=== PATIENT | male | born 1985 | race Caucasian/White ===

== ENCOUNTER 2021-07-13 00:10 | Inpatient (IN) | payer OTHER ==
[~2021-07-13] VITALS: Ht 188 cm; Wt 99.8 kg
[~2021-07-13 00:10] MED LIST: CIPR500 PO; DIPATR PO; HYDACE5 PO; RXDIPATR PO; RXHYDACE PO; RXTRAM50 PO; TRAM50 PO; TRAZ50 PO
[2021-07-13 00:31] LABS: Hematocrit 53.1 % (37.0-53.0); Hemoglobin 18.4 g/dL (13.5-17.5); Mean Corpuscular HGB 30.9 pg (26.0-34.0); Mean Corpuscular HGB Conc 34.7 g/dL (31.5-36.5); Mean Corpuscular Volume 89 fL (80-100); Mean Platelet Volume 9.7 fL (9.1-12.4); Platelet Count 339 K/mm3 (150-400); RDW Standard Deviation 39.8 fL (35.1-46.3); Red Blood Cell Count 5.95 M/mm3 (4.30-5.90); White Blood Cell Count 10.57 K/mm3 (4.00-11.30)
[2021-07-13 00:43] LABS: Albumin, Blood 3.3 g/dL (3.4-5.0); Albumin/Globulin Ratio 0.8 (0.8-1.8); Bun/Creatinine Ratio 17.4 (12.0-20.0); Calcium, Blood 9.8 mg/dL (8.5-10.1); Creatinine, Blood 1.44 mg/dL (0.60-1.20); Globulin, Blood 4.3 g/dL (2.2-4.0); Potassium, Blood 3.8 mmol/L (3.5-5.5); Total Protein, Blood 7.6 g/dL (6.4-8.2)
[2021-07-13 00:51] LABS: BAND PERCENT MAN 40 % (0-8); BASOPHILS PERCENT MAN 0 % (0-2); EOSINOPHILS PERCENT MAN 0 % (0-6); LYMPHOCYTES ABSOLUTE MAN 1.05 K/mm3 (0.84-5.20); LYMPHOCYTES PERCENT MAN 10 % (21-46); MONOCYTES ABSOLUTE MAN 0.42 K/mm3 (0.16-1.47); MONOCYTES PERCENT MAN 4 % (4-13); MYELOCYTE ABSOLUTE MAN 0.21 K/mm3 (0.00-0.00); MYELOCYTE PERCENT MAN 2 % (0-0); NEUTROPHILS ABSOLUTE MAN 8.87 K/mm3 (1.96-9.15); SEG NEUTROPHILS PERCENT MAN 44 % (41-73); TOTAL CELLS COUNTED 100
[2021-07-13 02:36] LABS: Influenza A, PCR NEGATIVE (NEGATIVE); Influenza B, PCR NEGATIVE (NEGATIVE); Resp Syncytial Virus, PCR NEGATIVE (NEGATIVE); SARS-Cov-2 (COVID-19) PCR, MMC NEGATIVE (NEGATIVE)
[2021-07-13 05:02] LABS: Hematocrit 51.5 % (37.0-53.0); Hemoglobin 17.7 g/dL (13.5-17.5); Mean Corpuscular HGB 30.8 pg (26.0-34.0); Mean Corpuscular HGB Conc 34.4 g/dL (31.5-36.5); Mean Corpuscular Volume 90 fL (80-100); Mean Platelet Volume 9.5 fL (9.1-12.4); Platelet Count 296 K/mm3 (150-400); RDW Coefficient Variation 12.1 % (11.7-14.2); RDW Standard Deviation 40.1 fL (35.1-46.3); Red Blood Cell Count 5.75 M/mm3 (4.30-5.90); White Blood Cell Count 10.85 K/mm3 (4.00-11.30)
--- NOTE | 2021-07-13 05:05 | NUR ---
RECEIVED PATIENT TO FLOOR ABOUT 0420. ALERT AND ORIENTED X'S 4. COMPLAINS OF ABDOMINAL PAIN UPON PALPITATION AND WHEN HAS TO REPOSITION SELF. NO ACUTE DISTRESS NOTED. ABDOMEN SLIGHT DISTENDED, SOFT TO TOUCH, BOWEL SOUNDS HYPOACTIVE IN ALL FOUR QUADRANTS. CURRENTLY RESTING WITH EYES CLOSED IN BED. SAFETY MAINTAINED, CALL SOSA IN REACH.
[2021-07-13 05:17] LABS: International Normalized Ratio 1.24; Prothrombin Time Results 12.8 Sec (9.7-11.5)
[2021-07-13 05:20] LABS: BAND PERCENT MAN 36 % (0-8); BASOPHILS PERCENT MAN 0 % (0-2); EOSINOPHILS PERCENT MAN 0 % (0-6); LYMPHOCYTES ABSOLUTE MAN 0.97 K/mm3 (0.84-5.20); LYMPHOCYTES PERCENT MAN 9 % (21-46); METAMYELOCYTE ABSOLUTE MAN 0.21 K/mm3 (0.00-0.00); METAMYELOCYTE PERCENT MAN 2 % (0-0); MONOCYTES ABSOLUTE MAN 1.08 K/mm3 (0.16-1.47); MONOCYTES PERCENT MAN 10 % (4-13); NEUTROPHILS ABSOLUTE MAN 8.57 K/mm3 (1.96-9.15); SEG NEUTROPHILS PERCENT MAN 43 % (41-73); TOTAL CELLS COUNTED 100
[2021-07-13 05:21] LABS: Albumin/Globulin Ratio 0.8 (0.8-1.8); Bilirubin, Total 1.8 mg/dL (0.1-1.0); Bun/Creatinine Ratio 19.9 (12.0-20.0); Calcium, Blood 9.6 mg/dL (8.5-10.1); Creatinine, Blood 1.41 mg/dL (0.60-1.20); Globulin, Blood 3.9 g/dL (2.2-4.0); Potassium, Blood 3.9 mmol/L (3.5-5.5); Total Protein, Blood 6.9 g/dL (6.4-8.2)
--- NOTE | 2021-07-13 12:56 | NUR ---
PT STARTED TO HAVE AN ELEVATED HR WITH ACTVITY AT APPROXIMATELY 1145. PT WAS UP AMBULATING AND SITTING IN THE CHAIR. INITIALLY HIS HR WAS INTERMITTENTLY IN THE 130'S BUT STARTED TO SUSTAIN 130'S. PT REQUESTED TO GET BACK TO BED. HE WAS ASSISTED BACK TO BED. HE REPORTED L SHOULDER PAIN AND NECK PAIN AT 1200. HE IS ALSO DIAPHORETIC, VS OBTAINED AND WNL EXCEPT ELEVATED HR. DR. MACDONALD CONTACTED AND DR. HARRIS WAS CONSULTED FOR MEDICAL MANAGEMENT. EKG, 2 VIEW CHEST XRAY AND TROPONINS COLLECTED. PAIN MEDICATION GIVEN. AWAITING RESULTS OF IMAGING/LABS. WILL CONTINUE TO MONITOR.
[2021-07-13] MEDS ORDERED: SYMBICORT 160-4.6 GM INH (13:13)
[2021-07-13] MEDS ORDERED: AMIT25 PO (13:15)
--- NOTE | 2021-07-13 14:27 | NUR ---
SPOKE WITH DR. HARRIS REGARDING ORDER FOR IV POTASSIUM REPLACEMENT SINCE LAST POTASSIUM LEVEL WAS 3.9. PER DR. HARRIS CONTINUE WITH PLAN FOR IV POTASSIUM REPLACEMENT OF 40MEQ POTASSIUM CHLORIDE. ALSO NOTIFIED DR. HARRIS THAT PT'S HR REMAINS 120-130. DISCUSSED NEED TO RESTART HOME MEDICATIONS AMITRYPTALINE AND SYMBICORT. ORDER PLACED FOR NICOTINE PATCH PER DR. HARRIS. AT THIS TIME PT REPORTS PAIN TO L SHOULDER AND NECK HAS DIMINISHED. HE STILL COMPLAINS OF ABD PAIN. HE REPORTS FEELING ANXIOUS AND ATIVAN WAS GIVEN FOR ANXIETY. WILL CONTINUE TO MONITOR.
--- NOTE | 2021-07-13 16:43 | NUR ---
DR. HARRIS NOTIFIED THAT PT'S HR CONTINUES TO RUN IN THE HIGH 120'S TO 130S. PT PT IS ASYMPTOMATIC OF ELEVATED HR AT THIS TIME. HE HAS BEEN MEDICATED FOR PAIN AND ANXIETY WITH NO DECREASE IN HR. AT THIS TIME WILL CONTINUE TO MONITOR INSTRUCTED BY DR. HARRIS. WILL NOTIFY MEDICAL PROVIDER IF ANY CHANGES IN THE PATIENTS CONDITION.
--- NOTE | 2021-07-13 17:46 | NUR ---
SHIFT SUMMARY PT REMAINS IN THE HOSPITAL FOR CONSERVATIVE MANAGEMENT OF PERF'D DIVERTICULITIS. HIS PAIN HAS BEEN MANAGED WITH IV PAIN MEDICATION. PT HAS ALSO HAD SOME ANXIETY, MANAGED WITH ATIVAN X1. NAUSEA HAS BEEN MANAGED WITH ZOFRAN. PT IS TOLERATING SIPS AND CHIPS, PT INITIALLY DRANK WATER TO QUICKLY DESPITE EDUCATION AND HAD INCREASED PAIN THIS AM. PT HAS ONLY BEEN ALLOWED SMALL QUANTITIES OF WATER AND ICE TO AVOID LARGE INTAKE OF FLUID. PT HAS REPORTED UNDERSTANDING OF MINIMIZING INTAKE AND APPEARS TO BE SELF MONITORING INTAKE BETTER THIS EVENING. PT IS A 1 ASSIST WHEN OOB. HE REQUIRES FREQUENT ENCOURAGEMENT TO MOVE AND REPOSITION HIMSELF. PT EDUCATED TO AMBULATE TO IMPROVE GASTRIC MOBILITY AND RELIEVE GAS PAIN. PT HAS HAD AN ELEVATED HR THIS AFTERNOON, DR. HARRIS AND DR. MACDONALD AWARE OF ELEVATED HR. SINCE PT IS ASYMPTOMATIC HE IS BEING OBSERVED AT THIS TIME. HE HAS ALSO REMAINED IN BED R/T ELEVATED HEART RATE THIS AFTERNOON. PT WAS EDUCATED TO USE AN INCENTIVE SPIROMETER AND HE DEMONSTRATED USE APPROPRIATELY. WILL MONITOR UNTIL REPORT TO CHIO ORTIZ.
[2021-07-14 03:52] LABS: Hematocrit 48.7 % (37.0-53.0); Hemoglobin 16.5 g/dL (13.5-17.5); Mean Corpuscular HGB 30.7 pg (26.0-34.0); Mean Corpuscular HGB Conc 33.9 g/dL (31.5-36.5); Mean Corpuscular Volume 91 fL (80-100); Mean Platelet Volume 10.2 fL (9.1-12.4); Platelet Count 234 K/mm3 (150-400); RDW Coefficient Variation 12.3 % (11.7-14.2); RDW Standard Deviation 41.1 fL (35.1-46.3); Red Blood Cell Count 5.38 M/mm3 (4.30-5.90); White Blood Cell Count 8.88 K/mm3 (4.00-11.30)
[2021-07-14 04:09] LABS: Anion Gap 7 mmol/L (6-16); Blood Urea Nitrogen 39 mg/dL (8-24); Bun/Creatinine Ratio 35.8 (12.0-20.0); CO2, Blood 25 mmol/L (21-32); Calcium, Blood 9.1 mg/dL (8.5-10.1); Chloride, Blood 98 mmol/L (98-108); Creatinine, Blood 1.09 mg/dL (0.60-1.20); Glomerular Filtration Rate >60 (60-); Glucose, Blood 158 mg/dL (70-99); Magnesium, Blood 2.2 mg/dL (1.6-2.4); Potassium, Blood 4.2 mmol/L (3.5-5.5); Sodium, Blood 130 mmol/L (136-145)
[2021-07-14 04:14] LABS: BAND PERCENT MAN 39 % (0-8); BASOPHILS PERCENT MAN 0 % (0-2); EOSINOPHILS PERCENT MAN 0 % (0-6); LYMPHOCYTES ABSOLUTE MAN 0.88 K/mm3 (0.84-5.20); LYMPHOCYTES PERCENT MAN 10 % (21-46); MONOCYTES ABSOLUTE MAN 0.44 K/mm3 (0.16-1.47); MONOCYTES PERCENT MAN 5 % (4-13); MYELOCYTE ABSOLUTE MAN 0.08 K/mm3 (0.00-0.00); MYELOCYTE PERCENT MAN 1 % (0-0); NEUTROPHILS ABSOLUTE MAN 7.45 K/mm3 (1.96-9.15); SEG NEUTROPHILS PERCENT MAN 45 % (41-73); TOTAL CELLS COUNTED 100
--- NOTE | 2021-07-14 06:22 | NUR ---
Medicated with dilaudid iv almost every q3hrs for pain management. Heart rate was sustaining in the 140's, received Trandate 10mg x's 1, decreased to low 100's otherwise heart rate sustained in the low 120's, asymptmatic. Denied chest pain, applied 02@2L due to saturation decreased to 89% but patient denied SOB, respirations remained even and unlabored. Medicated with Zofran x's 1 due to nausea/vomitting a small amount, effective relief. Currently resting in bed, no acute distress noted, safety maintained, call quijano in reach.
--- NOTE | 2021-07-14 15:19 | NUR ---
PT. UP IN HALLWAY FOR A WALK, USING FWW AND SBA. TOLERATE WELL, HR UP TO 140, AT THIS TIME HR IS 120 AFTER SHOWER AND PT. IS RESTING IN BED. DENIES NAUSEA.
--- NOTE | 2021-07-14 16:18 | NUR ---
PT. RESTING WITH NO S/S PAIN OR ANY DISCOMFORT. RESP UNLABORED, NO FACIAL GRIMACE OR MOANING. POSITIONED WITH PILLOWS, CALL LIGHT IN REACH.
--- NOTE | 2021-07-14 18:14 | NUR ---
PT. AWOKE AT THIS TIME STATING HE WAS NAUSEATED AND THEN STARTED CRYING. AFTER ZOFRAN GIVEN PT. STATES HIS STOMACH HURT AND REQUEST PAIN MEDICATION. IV DILAUDID GIVEN FOR 8/10 PAIN. NOTED NO CHANGES IN ABDOMEN. AFTER MEDICATION GIVEN PATIENT DID VERBALIZE RELIEF.
--- NOTE | 2021-07-15 05:42 | NUR ---
MEDICATED WITH DILAUDID THROUGH NIGHT, EFFECTIVE RELIEF. AMBULATED IN [place]RIFF[place] ,PATIENT STATED IT MADE HIM FEEL A LITTLE BETTER, HEART RATE INCREASED TO 140, REMAINED ASYMPTOMATIC, ASSISTED PATIENT BACK TO BED, HEART RATE TRENDED DOWN TO ABOUT 115. ABDOMEN DISTENDED, BOWEL SOUNDS HYPOATIVE. SAFETY MAINTAINED, CALL SOSA IN REACH.
--- NOTE | 2021-07-15 16:37 | NUR ---
Upon receiving a spiritual care refferal, I visit pt. Pt is sitting up in bed and immediately tells me about his medical issues, the recent of his step-father and the emotional struggles he is having. We also talk about his spiritual journey and the things that inspire and motivate him. I normalize his experience and provide therapeutic listening, anxiety containment, spiritual guidance and prayer. Patient responds well and shows signs of an elevated mood. I will continue to remain aavailable to patient and family.
--- NOTE | 2021-07-15 18:03 | NUR ---
SHIFT SUMMARY A&O X4, INTELLECTUAL FUNCTIONING DISABILIY, CALLS AND RESPONDS APPROP TO STAFF. ANXIOUS ABOUT CARE PLAN AND DIAGNOSIS, NEEDS FREQ REASSURANCE. VSS ON RA, SINUS TACHY T/O DAY. TELE IN PLACE. NG TUBE PLACED W/ LIS TODAY PER DR. MACDONALD. PT REPORTS RELIEF IN ABD FROM NG, ABD SOFTER. PT REMAINS NPO W/ ICE CHIPS. DENIES N/V AND FLATUS. PAIN MANAGED WITH 1MG DILAUDID PER EMAR. TOMMY URINE T/O SHIFT. WILL REPORT TO ONCOMING RN.
[2021-07-16 04:27] LABS: BASOPHILS ABSOLUTE AUTO 0.05 K/mm3 (0.00-0.23); BASOPHILS PERCENT AUTO 0 % (0-2); EOSINOPHILS ABSOLUTE AUTO 0.01 K/mm3 (0.00-0.68); EOSINOPHILS PERCENT AUTO 0 % (0-6); Hematocrit 42.6 % (37.0-53.0); Hemoglobin 14.4 g/dL (13.5-17.5); IMMATURE GRAN ABSOLUTE AUTO 0.15 K/mm3 (0.00-0.10); IMMATURE GRAN PERCENT AUTO 1 % (0-1); LYMPHOCYTES ABSOLUTE AUTO 0.93 K/mm3 (0.84-5.20); LYMPHOCYTES PERCENT AUTO 7 % (21-46); MONOCYTES ABSOLUTE AUTO 1.03 K/mm3 (0.16-1.47); MONOCYTES PERCENT AUTO 8 % (4-13); Mean Corpuscular HGB 30.1 pg (26.0-34.0); Mean Corpuscular HGB Conc 33.8 g/dL (31.5-36.5); Mean Corpuscular Volume 89 fL (80-100); Mean Platelet Volume 9.7 fL (9.1-12.4); NEUTROPHILS ABSOLUTE AUTO 10.56 K/mm3 (1.96-9.15); NEUTROPHILS PERCENT AUTO 83 % (41-73); NRBC ABSOLUTE 0.02 K/mm3 (0.00-0.02); NRBC Auto 0.2 /100 WBC (0.0-0.2); Platelet Count 235 K/mm3 (150-400); RDW Standard Deviation 42.8 fL (35.1-46.3); Red Blood Cell Count 4.78 M/mm3 (4.30-5.90); White Blood Cell Count 12.73 K/mm3 (4.00-11.30)
--- NOTE | 2021-07-16 04:30 | NUR ---
SHIFT SUMMARY: PATIENT ALERT & ORIENTED BUT NEEDED SOME REINFORCEMENT ON HEALTH TEACHINGS HE FORGWTS SOMETIMES & TAKES A LITTLE WHILE TO UNDERSTAND. HR WNL, NO S/S OF RESP./CV DISTRESS NOTED. NGT IN PLACE DRAINING MODERATE AMOUNT OF BILE COLORED GASTRIC CONTENT. COMPLAINTS OF PAIN MEDICATED, SEE EMAR. WILL CONTINUE TO MONITOR.
[2021-07-16 04:45] LABS: Albumin, Blood 2.3 g/dL (3.4-5.0); Anion Gap 6 mmol/L (6-16); Blood Urea Nitrogen 15 mg/dL (8-24); Bun/Creatinine Ratio 25.7 (12.0-20.0); CO2, Blood 31 mmol/L (21-32); Calcium, Blood 8.7 mg/dL (8.5-10.1); Chloride, Blood 95 mmol/L (98-108); Creatinine, Blood 0.58 mg/dL (0.60-1.20); Glomerular Filtration Rate >60 (60-); Glucose, Blood 110 mg/dL (70-99); Phosphorus, Blood 2.8 mg/dL (2.5-4.9); Potassium, Blood 3.5 mmol/L (3.5-5.5); Sodium, Blood 132 mmol/L (136-145)
--- NOTE | 2021-07-16 16:12 | NUR ---
SHIFT SUMMARY A/0 X4, HX OF INTELLECTUAL DISABILITY, PT ASKS FREQUENT REPETITIVE QUESTIONS ABOUT CARE, FREQUENT REASSURANCE AND PT VERBALIZES UNDERSTANDING. NGT IN PLACE W/ LIS. GREEN/CLEAR LIQUID DRNG. PT REMAINS NPO EXCEPT ICE CHIPS & X2 CUPS OF SPRITE PER DR. MACDONALD. PT CONT TO REPORT 5 TO 6/10 PAIN, MEDICATED PER EMAR. ENCOURAGED MOVEMENT AND AMBULATION T/O DAY, PT HESITANT D/T NGT. WILL REPORT TO ONCOMING RN.
--- NOTE | 2021-07-17 05:08 | NUR ---
SHIFT SUMMARY: PT. COMPLAINTS OF ABDOMINAL PAIN MEDICATED, SEE, EMAR. NGT OUTPUT OF 1000 ML GREENISH GASTRIC CONTENT. NO S/S OF RESP./CV DISTRESS NOTED, THROUGHOUT THE SHIFT, PT. SLEPT WELL. ABLE TO MAKE NEEDS KNOWN & USES CALL LIGHT.
[2021-07-17 06:02] LABS: BASOPHILS ABSOLUTE AUTO 0.06 K/mm3 (0.00-0.23); BASOPHILS PERCENT AUTO 1 % (0-2); EOSINOPHILS ABSOLUTE AUTO 0.03 K/mm3 (0.00-0.68); EOSINOPHILS PERCENT AUTO 0 % (0-6); Hematocrit 43.6 % (37.0-53.0); Hemoglobin 14.9 g/dL (13.5-17.5); IMMATURE GRAN PERCENT AUTO 5 % (0-1); LYMPHOCYTES ABSOLUTE AUTO 1.68 K/mm3 (0.84-5.20); LYMPHOCYTES PERCENT AUTO 13 % (21-46); MONOCYTES ABSOLUTE AUTO 1.65 K/mm3 (0.16-1.47); MONOCYTES PERCENT AUTO 13 % (4-13); Mean Corpuscular HGB 30.3 pg (26.0-34.0); Mean Corpuscular HGB Conc 34.2 g/dL (31.5-36.5); Mean Corpuscular Volume 89 fL (80-100); Mean Platelet Volume 9.8 fL (9.1-12.4); NEUTROPHILS ABSOLUTE AUTO 8.52 K/mm3 (1.96-9.15); NEUTROPHILS PERCENT AUTO 68 % (41-73); Platelet Count 291 K/mm3 (150-400); RDW Coefficient Variation 13.3 % (11.7-14.2); RDW Standard Deviation 43.6 fL (35.1-46.3); Red Blood Cell Count 4.92 M/mm3 (4.30-5.90); White Blood Cell Count 12.54 K/mm3 (4.00-11.30)
[2021-07-17 06:33] LABS: Alanine Aminotransfer (ALT/SGP 30 U/L (12-78); Albumin, Blood 2.3 g/dL (3.4-5.0); Albumin/Globulin Ratio 0.6 (0.8-1.8); Alk Phos 122 U/L (50-136); Anion Gap 7 mmol/L (6-16); Aspartate Aminotrans (AST/SGOT 33 U/L (12-37); Bilirubin, Total 2.2 mg/dL (0.1-1.0); Blood Urea Nitrogen 14 mg/dL (8-24); Bun/Creatinine Ratio 25.3 (12.0-20.0); CO2, Blood 30 mmol/L (21-32); Chloride, Blood 96 mmol/L (98-108); Creatinine, Blood 0.55 mg/dL (0.60-1.20); Globulin, Blood 3.9 g/dL (2.2-4.0); Glomerular Filtration Rate >60 (60-); Glucose, Blood 106 mg/dL (70-99); Potassium, Blood 3.3 mmol/L (3.5-5.5); Sodium, Blood 133 mmol/L (136-145); Total Protein, Blood 6.2 g/dL (6.4-8.2)
--- NOTE | 2021-07-17 15:00 | NUR ---
Patient is resting but easily awakens to the sound of his name. He tells me about his positive progress and about how anxious he is to return home. He is looking forward to returning to the life of fishing and hiking that he enjoys. Patient has no concerns at this time. I provide prayer and continued grief support. Patient responds well and voices appreciation for the visit. I will continue to remain available to patient.
--- NOTE | 2021-07-17 17:56 | NUR ---
PATIENT CURRENTLY LYING IN BED WITH NO SIGNS OR SYMPTOMS ACUTE DISTRESS NOTE. MEDICATED FOR NAUSEA PER ORDERS. MEDICATED FOR PAIN PER ORDERS. SEE EMAR. IVF CONTINUE WITH IV ANTIBIOTICS. NGT WAS REMOVED THIS AM BY DR MACDONALD AT ABOUT 0930. PATIENT TOLERATED THE REMOVAL FAIR. PATIENT IS ABLE TO MAKE NEEDS AND WANTS KNOWN. IS TOLERATEING SIPS OF WATER THOROUGHT THE DAY. HE KNOWNS TO TAKE ADVANCING SLOWLY. HE DID NOT LIKE THE JELLO. CALL LIGHT IN EASY REACH, WILL MONITOR.
--- NOTE | 2021-07-18 04:43 | NUR ---
SHIFT SUMMARY: PT. ANXIOUS OF WHEN HE CAN GO HOME, REINFORCED HEALTH TEACHINGS ON CURRENT HEALTH NEEDS, PT. WOULD VERBALIZE UNDERSTANDING BUT WOULD REPEAT ASKING SAME QUESTIONS SEVERAL TIMES. PT. AMBULATED AT THE HALLWAY EARLY ON THE SHIFT, AMBULATES TO THE BATHROOM ON 1 PERSON ASSIST, REMINDED TO CALL FOR ANY ASSISTANCE & DON'T FALL, PT. VERBALIZED UNDERSTANDING, CLWR. DULCOLAX SUPPOSITORY GIVEN, PT. HAD 2 BMs SINCE THEN. VOIDING IN THE BATHROOM. COMPLAINTS OF NAUSEA & PAIN MEDICATED, SEE EMAR. NO S/S OF RESP./CV DISTRESS NOTED. WILL CONTINUE TO MONITOR.
[2021-07-18 10:03] LABS: BASOPHILS ABSOLUTE AUTO 0.07 K/mm3 (0.00-0.23); BASOPHILS PERCENT AUTO 1 % (0-2); EOSINOPHILS ABSOLUTE AUTO 0.01 K/mm3 (0.00-0.68); EOSINOPHILS PERCENT AUTO 0 % (0-6); Hematocrit 47.1 % (37.0-53.0); Hemoglobin 15.8 g/dL (13.5-17.5); IMMATURE GRAN ABSOLUTE AUTO 0.47 K/mm3 (0.00-0.10); IMMATURE GRAN PERCENT AUTO 3 % (0-1); LYMPHOCYTES ABSOLUTE AUTO 2.07 K/mm3 (0.84-5.20); LYMPHOCYTES PERCENT AUTO 14 % (21-46); MONOCYTES ABSOLUTE AUTO 1.26 K/mm3 (0.16-1.47); MONOCYTES PERCENT AUTO 8 % (4-13); Mean Corpuscular HGB 29.9 pg (26.0-34.0); Mean Corpuscular HGB Conc 33.5 g/dL (31.5-36.5); Mean Corpuscular Volume 89 fL (80-100); Mean Platelet Volume 9.6 fL (9.1-12.4); NEUTROPHILS ABSOLUTE AUTO 11.17 K/mm3 (1.96-9.15); NEUTROPHILS PERCENT AUTO 74 % (41-73); Platelet Count 335 K/mm3 (150-400); RDW Coefficient Variation 13.5 % (11.7-14.2); RDW Standard Deviation 44.1 fL (35.1-46.3); Red Blood Cell Count 5.28 M/mm3 (4.30-5.90); White Blood Cell Count 15.05 K/mm3 (4.00-11.30)
[2021-07-18 10:44] LABS: Anion Gap 8 mmol/L (6-16); Blood Urea Nitrogen 18 mg/dL (8-24); Bun/Creatinine Ratio 33.9 (12.0-20.0); CO2, Blood 29 mmol/L (21-32); Calcium, Blood 9.1 mg/dL (8.5-10.1); Chloride, Blood 98 mmol/L (98-108); Creatinine, Blood 0.53 mg/dL (0.60-1.20); Glomerular Filtration Rate >60 (60-); Glucose, Blood 114 mg/dL (70-99); Potassium, Blood 3.6 mmol/L (3.5-5.5); Sodium, Blood 135 mmol/L (136-145)
--- NOTE | 2021-07-18 16:37 | NUR ---
PATIENT UP IN GRIFFIN AMBULATING TODAY MULTIPLE TIMES WITH SBA, TOLERATE WELL. DID HAVE GREEN EMESIS THIS A.M. BUT AT THIS TIME TOLERATING CLEAR LIQUIDS. NO IV PAIN MEDICATION REQUIRED TODAY. HAS TAKEN 2 NORCO EARLIER FOR 5-6 OUT OF 10 ABDOMINAL DISCOMFORT.
--- NOTE | 2021-07-18 18:14 | NUR ---
DR. MACDONALD HERE TO SEE PATIENT. NOTIFEID DR. MACDONALD OF PATIENT BIALTERAL REDNESS NOTED ON FLANKS TODAY, SLIGHT SWELLING NOTED. DIET ADVANCED TO REGULAR FOR A.M. BREAKFAST.
--- NOTE | 2021-07-19 02:06 | NUR ---
0035 ACCOUNT EXECUTIVE [employer] TACOS NOTIFIED ME OF PT'S HR OF 150 FOR 10 - 15 MINS., NOTED PT. UP IN BED DRINKING WATER & COMPLAINTS OF ABDOMINAL PAIN OF 5-6/10, ANXIOUS OF THE WHOLE HOSPITALIZATION SITUATION & VERBALIZED OF WANTING TO GO HOME. GAVE PAIN MEDICINE AT 0041, & EXPLAINED TO PT. THAT HE NEEDS TO RELAX FOR NOW & WILL TALK TO MD TOMORROW FOR PLAN OF D/C. PT. STILL ANXIOUS, ATIVAN GIVEN AT 0049. PT. REQUESTED TO WALK AT THE HALLWAY. ASSISTED BY TRANSIT PROOF MACHINE OPERATOR, PT. WALKED ABOUT 60 METERS TOTAL THEN WENT TO BATHROOM TRYING TO PASS GAS WHICH PER PT. HE HAD A SMALL BM UNWITNESSED HE ALREADY FLUSHED. V/S CHECKED WITH HR RESULT OF 151, PER ACCOUNT EXECUTIVE [employer] HR ON 145 - 150. [address] VALLECILLO OF ALL THIS SITUATION, TELEPHONE ORDER RECEIVED TO GIVE NS 500 IV BOLUS NOW, MIRALAX 1 PACKET NOW & WAIT UNTIL PAIN MEDICATION KICKS IN IN ABOUT 30 MINUTES, LET ME KNOW IF PAIN DOES NOT IMPROVE,TORB. 0159 CAME TO SEE PT. IN ROOM, NS BOLUS WAS DONE, SAW FLUID RUNNING NS WITH 20 MEQ POTASSIUM AT 75 ML/HR, VERBAL ORDER RECEIVED FROM DR. VALLECILLO TO INCREASE CURRENT FLUID NS WITH 20 MEQ POTASSIUM TO 150 ML/HR, VORB. ASKED MD IF NO OTHER MEDICATION THAT HE CAN GIVE AT THIS TIME WITH CURRENT HR OF ON THE 150 - 160? MD REPLIED " NO, HE SHOULD BE FINE". WILL CONTINUE TO MONITOR & WILL NOTIFY MD OF ANY CHANGES.
[2021-07-19 02:28] LABS: Hematocrit 50.4 % (37.0-53.0); Hemoglobin 17.2 g/dL (13.5-17.5); Mean Corpuscular HGB 30.8 pg (26.0-34.0); Mean Corpuscular HGB Conc 34.1 g/dL (31.5-36.5); Mean Corpuscular Volume 90 fL (80-100); Mean Platelet Volume 9.8 fL (9.1-12.4); Platelet Count 377 K/mm3 (150-400); RDW Coefficient Variation 14.1 % (11.7-14.2); RDW Standard Deviation 46.5 fL (35.1-46.3); Red Blood Cell Count 5.58 M/mm3 (4.30-5.90); White Blood Cell Count 14.97 K/mm3 (4.00-11.30)
--- NOTE | 2021-07-19 02:34 | NUR ---
0225 NOTIFED BY REGISTERED APPRAISER OF HR OF 160, PT. WALKED TO BATHROOM & TRIED TO HAVE BM BUT ONLY PASSED GAS. 0236 PT. BACK IN BED, HR OF 149 SR PER REGISTERED APPRAISER, WILL CONTINUE TO MONITOR.
[2021-07-19 02:47] LABS: Anion Gap 6 mmol/L (6-16); Blood Urea Nitrogen 17 mg/dL (8-24); Bun/Creatinine Ratio 30.6 (12.0-20.0); CO2, Blood 25 mmol/L (21-32); Calcium, Blood 8.2 mg/dL (8.5-10.1); Chloride, Blood 104 mmol/L (98-108); Creatinine, Blood 0.56 mg/dL (0.60-1.20); Glomerular Filtration Rate >60 (60-); Glucose, Blood 127 mg/dL (70-99); Potassium, Blood 3.8 mmol/L (3.5-5.5); Sodium, Blood 135 mmol/L (136-145)
[2021-07-19 02:54] LABS: BAND PERCENT MAN 5 % (0-8); BASOPHILS PERCENT MAN 0 % (0-2); EOSINOPHILS PERCENT MAN 0 % (0-6); LYMPHOCYTES ABSOLUTE MAN 1.49 K/mm3 (0.84-5.20); LYMPHOCYTES PERCENT MAN 10 % (21-46); MONOCYTES ABSOLUTE MAN 0.89 K/mm3 (0.16-1.47); MONOCYTES PERCENT MAN 6 % (4-13); MYELOCYTE ABSOLUTE MAN 0.14 K/mm3 (0.00-0.00); MYELOCYTE PERCENT MAN 1 % (0-0); NEUTROPHILS ABSOLUTE MAN 12.42 K/mm3 (1.96-9.15); SEG NEUTROPHILS PERCENT MAN 78 % (41-73); TOTAL CELLS COUNTED 100
--- NOTE | 2021-07-19 05:58 | NUR ---
0500 NOTIFIED OF PT'S NO CHANGE OF HR WHICH IS ON THE 150S SINCE MD LAST SAW HIM IN THE ROOM, ALSO THAT HR GOES UP TO HIGH 160S UPON EXERTION SUCH GETTING UP & WALKING TO THE BATHROOM, TELEPHONE ORDER RECEIVED TO CONTINUE IV FLUID AT A RATE OF 150 BUT CHANGE IT TO PLAIN NS AFTER CURRENT FLUID ( NS WITH 20 MEQ POTASSIUM) IS FINISHED, DO EKG NOW TO MAKE SURE IT IS SINUS TACH & NOT RAPID AFIB, TORB. NOTIFIED DR. VALLECILLO OF EKG RESULT OF SINUS TACHYCARDIA AT 149 RATE, RIGHT AXIS DEVIATION, MD SAID " THAT'S OKAY", NO FURTHER ORDER RECEIVED, TORB.
--- NOTE | 2021-07-19 08:17 | NUR ---
DR MACDONALD IN TO SEE PT DISCUSSED HR. PT STABLE, DR MACDONALD WILL DC PATIENT TODAY. NOTIFIED DR HARRIS.
--- NOTE | 2021-07-19 09:41 | NUR ---
TELE DC'D AND SENT BACK.
[2021-07-19] MEDS ORDERED: HYDR1TAB94 PO (10:05)
[2021-07-19] MEDS ORDERED: AMOX-CLAV 875-1 EAC1 PO (10:06)
[2021-07-19] MEDS ORDERED: PROM25 PO (10:07)
--- NOTE | 2021-07-19 10:40 | NUR ---
Per Dr. Lord, patient appropriate for discharge. Nurse case fitter, Jaki Preciado, requested I schedule discharge transport with [place]. Transportation scheduled for 11:15AM with [facility] [phone] to transport him to his pharmacy and then home. I visited the patient in his [facility] room and discussed the follow-up appointment I scheduled with his PCP, Dr. Keshav Garcia, on July at 12:00 PM. I also gave patient a pamplet regarding transportation provided through [facility]. Patient's nurse consulted regarding discharge plan. All agreeable, deny barriers to discharge.
--- NOTE | 2021-07-19 10:51 | NUR ---
DISCHARGED REVIEWED DC INSTRUCTIONS W/PT; VERBALIZED UNDERSTANDING. DC'D IV, CATHETER INTACT. PT WANTS TO WAIT OUTSIDE FOR RIDE "TO GET SOME AIR". ADVISED PT RIDE ISN'T COMING UNTIL APPROXIMATELY 11:15, PT VERBALIZED UNDERSTANDING AND INSISTED ON WAITING OUT FRONT. LEFT UNIT IN WC W/POSSESSIONS AND DC PAPERWORK IN HAND TO AWAIT RIDE OUT FRONT.
== END 2021-07-19 10:55 | disposition home or self-care (01) | DRG 872 ==
LOC: ER 00:10 → SURS 03:55
PROVIDERS: Family Medicine; Internal Medicine; Student in an Organized Health Care Education/Training Program; ADMIT Surgery
DX: A41.9 Sepsis, unspecified organism (principal); K57.20 Diverticulitis of large intestine with perforation and abscess without bleeding; N17.9 Acute kidney failure, unspecified; E87.1 Hypo-osmolality and hyponatremia; E87.2 Acidosis; K56.7 Ileus, unspecified; Z20.822 Contact with and (suspected) exposure to COVID-19; R65.20 Severe sepsis without septic shock; E86.1 Hypovolemia; E78.5 Hyperlipidemia, unspecified; J45.909 Unspecified asthma, uncomplicated; G47.00 Insomnia, unspecified; E87.6 Hypokalemia; F41.1 Generalized anxiety disorder; F79 Unspecified intellectual disabilities; F12.20 Cannabis dependence, uncomplicated; Z28.21 Immunization not carried out because of patient refusal; F31.9 Bipolar disorder, unspecified; F17.210 Nicotine dependence, cigarettes, uncomplicated; F20.9 Schizophrenia, unspecified; Z79.899 Other long term (current) drug therapy; Z91.048 Other nonmedicinal substance allergy status
CPT/HCPCS: 0241U; 36415; 71045; 71046; 74177; 80048; 80053; 80069; 82248; 83605; 83690; 83735; 84484; 85025; 85610; 87040; 93005; 93010; 94640; 94664; 94760; 94762; 96365; 96375; 99285-25; A9270; J1170; J1200; J1650; J2060; J2405; J2543; J3480; J7030; J7040; J7042; J7120; Q9967

== ENCOUNTER 2021-07-20 17:50 | Inpatient (IN) | payer OTHER ==
[~2021-07-20] VITALS: Ht 190.5 cm; Wt 104.1 kg
[~2021-07-20 17:50] MED LIST changes: +AMIT25 PO; +AMOX-CLAV 875-1 EAC1 PO; +HYDR1TAB94 PO; +PROM25 PO; +SYMBICORT 160-4.6 GM INH
[2021-07-20 18:22] LABS: EOSINOPHILS PERCENT AUTO 0 % (0-6); Hematocrit 42.4 % (37.0-53.0); Hemoglobin 15.4 g/dL (13.5-17.5); IMMATURE GRAN ABSOLUTE AUTO 1.32 K/mm3 (0.00-0.10); IMMATURE GRAN PERCENT AUTO 3 % (0-1); LYMPHOCYTES ABSOLUTE AUTO 2.42 K/mm3 (0.84-5.20); LYMPHOCYTES PERCENT AUTO 6 % (21-46); MONOCYTES ABSOLUTE AUTO 1.46 K/mm3 (0.16-1.47); MONOCYTES PERCENT AUTO 3 % (4-13); Mean Corpuscular HGB 30.8 pg (26.0-34.0); Mean Corpuscular HGB Conc 36.3 g/dL (31.5-36.5); Mean Platelet Volume 10.3 fL (9.1-12.4); NEUTROPHILS ABSOLUTE AUTO 37.92 K/mm3 (1.96-9.15); NEUTROPHILS PERCENT AUTO 88 % (41-73); Platelet Count 425 K/mm3 (150-400); RDW Coefficient Variation 13.9 % (11.7-14.2); RDW Standard Deviation 42.7 fL (35.1-46.3); White Blood Cell Count 43.15 K/mm3 (4.00-11.30)
[2021-07-20 18:31] LABS: BASOPHILS ABSOLUTE AUTO 0.03 K/mm3 (0.00-0.23); BASOPHILS PERCENT AUTO 0 % (0-2); Mean Corpuscular Volume 85 fL (80-100)
[2021-07-20 18:38] LABS: Alanine Aminotransfer (ALT/SGP 125 U/L (12-78); Albumin, Blood 2.2 g/dL (3.4-5.0); Albumin/Globulin Ratio 0.6 (0.8-1.8); Alk Phos 131 U/L (50-136); Anion Gap 8 mmol/L (6-16); Aspartate Aminotrans (AST/SGOT 123 U/L (12-37); Bilirubin, Total 2.2 mg/dL (0.1-1.0); Blood Urea Nitrogen 45 mg/dL (8-24); Bun/Creatinine Ratio 48.8 (12.0-20.0); CO2, Blood 27 mmol/L (21-32); Calcium, Blood 8.7 mg/dL (8.5-10.1); Chloride, Blood 92 mmol/L (98-108); Creatinine, Blood 0.92 mg/dL (0.60-1.20); Globulin, Blood 3.8 g/dL (2.2-4.0); Glomerular Filtration Rate >60 (60-); Glucose, Blood 113 mg/dL (70-99); Potassium, Blood 4.2 mmol/L (3.5-5.5); Sodium, Blood 127 mmol/L (136-145)
[2021-07-20 21:33] LABS: Influenza A, PCR NEGATIVE (NEGATIVE); Influenza B, PCR NEGATIVE (NEGATIVE); Resp Syncytial Virus, PCR NEGATIVE (NEGATIVE); SARS-Cov-2 (COVID-19) PCR, MMC NEGATIVE (NEGATIVE)
[2021-07-21 04:06] LABS: BASOPHILS ABSOLUTE AUTO 0.15 K/mm3 (0.00-0.23); BASOPHILS PERCENT AUTO 0 % (0-2); EOSINOPHILS ABSOLUTE AUTO 0.03 K/mm3 (0.00-0.68); EOSINOPHILS PERCENT AUTO 0 % (0-6); Hematocrit 40.5 % (37.0-53.0); Hemoglobin 14.3 g/dL (13.5-17.5); IMMATURE GRAN ABSOLUTE AUTO 1.17 K/mm3 (0.00-0.10); IMMATURE GRAN PERCENT AUTO 3 % (0-1); LYMPHOCYTES ABSOLUTE AUTO 1.38 K/mm3 (0.84-5.20); LYMPHOCYTES PERCENT AUTO 4 % (21-46); MONOCYTES ABSOLUTE AUTO 1.16 K/mm3 (0.16-1.47); MONOCYTES PERCENT AUTO 3 % (4-13); Mean Corpuscular HGB 30.4 pg (26.0-34.0); Mean Corpuscular HGB Conc 35.3 g/dL (31.5-36.5); Mean Corpuscular Volume 86 fL (80-100); Mean Platelet Volume 10.1 fL (9.1-12.4); NEUTROPHILS ABSOLUTE AUTO 31.62 K/mm3 (1.96-9.15); NEUTROPHILS PERCENT AUTO 89 % (41-73); Platelet Count 424 K/mm3 (150-400); RDW Coefficient Variation 14.3 % (11.7-14.2); RDW Standard Deviation 45.4 fL (35.1-46.3); Red Blood Cell Count 4.71 M/mm3 (4.30-5.90); White Blood Cell Count 35.51 K/mm3 (4.00-11.30)
[2021-07-21 04:28] LABS: Alanine Aminotransfer (ALT/SGP 93 U/L (12-78); Albumin, Blood 1.7 g/dL (3.4-5.0); Albumin/Globulin Ratio 0.5 (0.8-1.8); Alk Phos 111 U/L (50-136); Anion Gap 9 mmol/L (6-16); Aspartate Aminotrans (AST/SGOT 82 U/L (12-37); Blood Urea Nitrogen 49 mg/dL (8-24); Bun/Creatinine Ratio 45.4 (12.0-20.0); CO2, Blood 28 mmol/L (21-32); CPK Creatine Kinase 43 U/L (39-308); Calcium, Blood 7.6 mg/dL (8.5-10.1); Chloride, Blood 94 mmol/L (98-108); Creatinine, Blood 1.08 mg/dL (0.60-1.20); Globulin, Blood 3.2 g/dL (2.2-4.0); Glomerular Filtration Rate >60 (60-); Glucose, Blood 121 mg/dL (70-99); Magnesium, Blood 2.1 mg/dL (1.6-2.4); Phosphorus, Blood 5.1 mg/dL (2.5-4.9); Potassium, Blood 5.1 mmol/L (3.5-5.5); Sodium, Blood 131 mmol/L (136-145); Total Protein, Blood 4.9 g/dL (6.4-8.2)
[2021-07-21 04:32] LABS: Creatine Kinase MB <1.0 ng/mL (0.0-3.6); Creatine Kinase MB Index Unable to Calculate (0.0-4.0)
[2021-07-21 05:06] LABS: Base Excess Venous 6.5 mmol/L; Bicarbonate Venous 27.9 mmol/L (24.0-30.0); PCO2 Venous 48.1 mmHg (38-42); PO2 Venous 28.6 mmHg (38-42); pH Blood Venous 7.42 (7.34-7.37)
--- NOTE | 2021-07-21 05:15 | NUR ---
Patient arrived ot the unit at 0120 directly from OR. OR nurse and anesthesia at bedside, very brief handoff given to this RN. On arrival, pt tachycardic, hypertensive, extrememly diaphoretic, tachypnic, skin appeared mottled, febrile. Not on any sedation or pain management at this time. Pts pupils 4mm and very sluggish. Nystagmus present. Pt began waking up; would not track/ regard or follow commands but would open eyes spontaneously. No response to noxious stim but moving all extremities. Dr Morris and Dr Huntley contacted regarding pt status on arrival. propofol gtt started. Pt extremely agitated/ anxious, not responsive to propofol gtt; titrated accordingly. Slowly he began to follow commands, remains very agitated but nods yes to feeling pain. Unsafely thrashing in bed, reaching for ETT bilateral soft wrist restraints for patient and device safety. Dr. Huntley at the bedside. PRN's ordered, pt responsive to IV ativan. with pain management pt remained tacycardic but BP and RR lowered, became more compliant with the ventilator. Fluid bolus and IV abx initiated. midline abdominal incision dressing/clemencia intact, scant sangenous drainage. RMQ maurizio drain to self suction. LMQ colosomy, stoma red, small amount of liquid stool draining. NGT to lws; brown output. Croft; mayank urine. Left powerglide placed at the bedside. After tempid bath and icepacks, fever lowered by pt remains extremely diaphoretic. Intermittent agitation persists despite propofol gtt; prns given frequently.
--- NOTE | 2021-07-21 08:00 | NUR ---
PT REMAINS INTUBATED, SEDATED, AND RESTRAINED. CURRENTLY, PROPOFOL @ 60 MCG/KG/MIN. PT IS NOT FOLLOWING COMMANDS OR MOVING EXTREMTITIES SPONTANEOUSLY. PT HAS HX- SCHIZOPHRENIA AND ANXIETY. SEDATION LEVEL HAS BEEN DIFFICULT TO PREDICT. WILL MEDICATE FOR PAIN PER CPOT-SEE EMAR. ECG SHOWS ST WITH RATE 120'S. BP STABLE. LUNGS DIMINISHED IN THE BASES. ETT TO VENT: PS 8, PEEP 5, FIO2 30%-SATS>90% ETT SUCTION PRODUCTIVE OF SMALL AMOUNT OF THICK, WHITE SECTRETIONS. NGT TO LIS WITH MODERATE AMOUNT OF BROWN, LIQUID DRAINAGE. MIDLINE INCISION WITH MICHAEL DRESSING. SMALL AMOUNT OF OLD, BLOODY DRAINAGE NOTED, BUT DRESSING OVERALL C/D/I. BT'S ABSENT. ABDOMEN APPEARS DISTENDED AND FIRM. CELIA TO RMQ WITH SANGINOUS DRAINAGE. LEFT QUADRANT COLOSTOMY STOMA PINK AND THERE IS A SMALL AMOUNT OF BROWN, LIQUID STOOL TO DRAINAGE BAG. PT SKIN IS PALE, COOL, AND VERY DIAPHORETIC. CROCKER EXCHANGED FOR CROCKER WITH TEMP PROBE AND PT IS QUITE FEBRILE. COOLING BLANKET PLACED. CROCKER NOTED TO HAVE SMALL AMOUNT OF DARK, CLOUDY, TOMMY URINE-U/A SENT. DR. ZAVALA IN TO SEE PT-UPDATED TO CURRENT VS AND STATUS. PLAN FOR PICC LINE PLACEMENT LATER TODAY.
[2021-07-21 08:39] LABS: Source, Urine Foley catheter
[2021-07-21 08:50] LABS: Appearance, Urine Turbid (Clear); Bilirubin, Urine Neg (Neg); Blood, Urine 2+ (Neg); Color, Urine Yellow (P-Yellow); Glucose Qualitative, Urine Neg (Neg); Ketones, Urine Neg (Neg); Leukocyte Esterase, Urine 1+ (Neg); Nitrite, Urine Neg (Neg); Protein, Urine 2+ (Neg); Specific Gravity, Urine 1.025 (1.003-1.022); Urobilinogen, Urine NORM (Normal)
[2021-07-21 09:48] LABS: Amorphous Heavy (0-Heavy); Bacteria Mod /hpf; Squamous Epithelial Cells Few /hpf (Few)
[2021-07-21 09:49] LABS: Granular Casts 0-2 /lpf (0); Transitional Epithelial Cells Few /hpf (0-Rare)
--- NOTE | 2021-07-21 12:00 | NUR ---
PT RESTING QUIETLY ON VENT WITH PROPOFOL @ 60 MCG/KG/MIN. HR NOW 110'S. SBP TRENDING 120'S. TEMP 100.8-COOLING MEASURES STILL IN PLACE. PT MAINTAINS SATS>90% ON PS 8/5-FIO2 30%. MINIMAL ETT SECRETIONS. ABDOMEN REMAINS DISTENDED AND FIRM. MIDLINE DRESSING INTACT, BUT SMALL AMOUNT OF OLD BLOOD-UNCHANGED FROM PREVIOUS ASSESSMENT. BT'S REMAIN ABSENT, BUT COLOSTOMY STOMA PINK AND SMALL AMOUNT OF BROWN LIQUID STOOL TO OSTOMY DRAINAGE BAG. DR. DOUGLAS IN TO SEE PT.UPDATED TO CURRENT VS AND STATUS. PICC LINE HAS BEEN PLACED. DIETARY CONSULTED FOR TPN.
--- NOTE | 2021-07-21 14:00 | NUR ---
PT MED WITH MORPHINE AND ATIVAN, THEN TURNED HIGH ON THE LEFT SIDE TO EVALUATE SKIN. PT COCCYX SLIGHTLY RED. MEPILEX PLACED PREVENTATIVE MEASURE. MARTINEZ PAD CHANGED-PT TACHYPNEIC AND TACHYCARDIC, BUT OVERALL TOLERATED WELL. POSITIONED TO COMFORT ON RIGHT SIDE. PROPOFOL DRIP DECREASED TO 45 MCG/KG/MIN.
--- NOTE | 2021-07-21 16:00 | NUR ---
PT REMAINS INTUBATED, SEDATED, AND RESTRAINED. PT GRIMACES WITH ORAL CARE AND BECOMES TACHYPNEIC-MED WITH MORPHINE PER CPOT-SEE EMAR. PT REMAINS FEBRILE AND COOLING BLANKET IN PLACE HR 100-110'S. SBP TRENDING 120'S. LUNGS REMAIN DIMINISHED IN THE BASES. SATS >90% ON FI02 30%-NO VENT CHANGES. STILL FEW ETT SECRETIONS. MIDLINE MICHAEL DRESSING IS UNCHANGED. ABDOMEN REMAINS DISTENDED AND FIRM. BT'S REMAIN ABSENT, BUT COLOSTOMY STOMA RED AND DRAINING A SMALL AMOUNT OF BROWN, LIQUID STOOL. NGT TO LIS-DRAINING MODERATE AMOUNT OF BILE. CROCKER OUTPUT IMPROVED.
--- NOTE | 2021-07-21 18:29 | NUR ---
PT RESTING QUIETLY ON VENT. NO ACUTE CHANGES. INTAKE 2415 VS. 1275 OUT THIS SHIFT.
[2021-07-22 04:18] LABS: BASOPHILS ABSOLUTE AUTO 0.06 K/mm3 (0.00-0.23); BASOPHILS PERCENT AUTO 0 % (0-2); EOSINOPHILS PERCENT AUTO 2 % (0-6); Hematocrit 35.3 % (37.0-53.0); IMMATURE GRAN ABSOLUTE AUTO 0.59 K/mm3 (0.00-0.10); IMMATURE GRAN PERCENT AUTO 3 % (0-1); LYMPHOCYTES ABSOLUTE AUTO 1.98 K/mm3 (0.84-5.20); LYMPHOCYTES PERCENT AUTO 9 % (21-46); MONOCYTES ABSOLUTE AUTO 1.19 K/mm3 (0.16-1.47); MONOCYTES PERCENT AUTO 5 % (4-13); Mean Corpuscular HGB 30.3 pg (26.0-34.0); Mean Corpuscular Volume 89 fL (80-100); Mean Platelet Volume 9.9 fL (9.1-12.4); NEUTROPHILS ABSOLUTE AUTO 17.74 K/mm3 (1.96-9.15); NEUTROPHILS PERCENT AUTO 80 % (41-73); Platelet Count 341 K/mm3 (150-400); RDW Coefficient Variation 14.5 % (11.7-14.2); RDW Standard Deviation 47.4 fL (35.1-46.3); Red Blood Cell Count 3.96 M/mm3 (4.30-5.90); White Blood Cell Count 22.06 K/mm3 (4.00-11.30)
[2021-07-22 04:38] LABS: Alanine Aminotransfer (ALT/SGP 60 U/L (12-78); Albumin, Blood 1.4 g/dL (3.4-5.0); Albumin/Globulin Ratio 0.4 (0.8-1.8); Alk Phos 95 U/L (50-136); Anion Gap 4 mmol/L (6-16); Aspartate Aminotrans (AST/SGOT 88 U/L (12-37); Bilirubin, Total 1.4 mg/dL (0.1-1.0); Blood Urea Nitrogen 32 mg/dL (8-24); Bun/Creatinine Ratio 64.9 (12.0-20.0); CO2, Blood 32 mmol/L (21-32); Calcium, Blood 7.5 mg/dL (8.5-10.1); Chloride, Blood 96 mmol/L (98-108); Creatinine, Blood 0.49 mg/dL (0.60-1.20); Globulin, Blood 3.3 g/dL (2.2-4.0); Glomerular Filtration Rate >60 (60-); Glucose, Blood 130 mg/dL (70-99); Magnesium, Blood 2.3 mg/dL (1.6-2.4); Potassium, Blood 4.3 mmol/L (3.5-5.5); Sodium, Blood 132 mmol/L (136-145); Total Protein, Blood 4.7 g/dL (6.4-8.2); Triglycerides 314 mg/dL (30-140)
[2021-07-22 06:30] LABS: Phosphorus, Blood 1.8 mg/dL (2.5-4.9)
--- NOTE | 2021-07-22 06:37 | NUR ---
Shift Summary: Patient febrile at start of shift. Cooling pad placed underneath patient, machine programmed to auto; connected to locke temp probe. Fever broke quickly. Otherwise patient had an uneventful night; restful on the vent, tolerating pressure support without complication. HR low 100's. BP stable. Sedated on propofol, requiring only one dose of PRN ativan for breakthrough agitation.
--- NOTE | 2021-07-22 09:27 | NUR ---
UPDATE: STELLA SILVA. STELLA @ BEDSIDE FOR AM ROUNDS & SURGICAL SITE EVAL. PLEASED W/ SITE APPEARANCE & DRAINAGE. DISTENDED, FIRM ABD IS AN EXPECTED FINDING & STELLA ANTICIPATES ABD TO CONTINUE TO BE FIRM FOR AT LEAST 1 WK. TPN INFUSING. SUCTION TO NGT FOUND TO BE NOT FUNCTIONING. SUCTION HEAD REPLACED, & IMMEDIATE RETURN OF 200ml BLUE/GREEN OUTPUT W/ LIS. UPDATED ON PLAN TO EXTUBATE TODAY.
--- NOTE | 2021-07-22 16:00 | NUR ---
UPDATE: EXTUBATION @ 1515 PT AWAKE, OPENING EYES, ABLE TO FOLLOW SIMPLE COMMANDS. VENT: PS 5/5 30%. SPO2 99%. RT @ BEDSIDE & PT EXTUBATED W/ SUCCESS. SUCTIONED MOD THICK/THIN WHITE ORAL SECRETIONS, PT ABLE TO FOLLOW COMMANDS TO COUGH/DEEP BREATHE TO MANAGE OWN SECRETIONS. +NC @ 3L/min. SPO2 96%. TOLERATING ICE CHIPS WELL. PT'S FRIEND, ADEN, @ BEDSIDE. SHE IS ABLE TO CONSOLE PT. RESTRAINTS LEFT ON @ THIS TIME FOR PT SAFETY, WILL RE-EVALUATE PT AWAKES.
--- NOTE | 2021-07-22 17:15 | NUR ---
UPDATE: CONFUSION PRECEDEX @ 0.4mcg/kg/hr. BECOMING MORE AWAKE, PULLING @ RESTRAINTS & CALLING OUT "GET ME OUT OF HERE, I WANT TO GO HOME" "GET THESE HANDCUFFS OFF ME". PT ABLE TO BE CONSOLED FOR ONLY A FEW MINS BEFORE HE AGAIN BECOMES VERY FEARFUL OF BEING "ALONE" IN THE HOSPITAL. PER FRIEND & PREVIOUS RECORDS, PT HAS A COGNITIVE DELAY THOUGH SPECIFICS ARE UNKNOWN. HE APPEARS TO UNDERSTAND CONCEPTS IN VERY SIMPLE TERMS & DOES NOT UNDERSTAND THE SERIOUSNESS OF HIS ILLNESS. HE CONTINUES TO INSIST HE GO HOME. PT ORIENTED TO DRAINS, OSTOMY, & PICC LINE. EDUCATED ON THEIR IMPORTANCE. PT GIVEN SHORT TRIAL W/ 1 RESTRAINT OFF W/ RN @ BEDSIDE. HE IMMEDIATELY REACHED FOR CELIA DRAIN & PULL @ VS EQUIPMENT. FRIEND STS SHE EXPECTS THE PT TO NOT TOLERATE ANY EQUIP OR DRAINS & PULL THEM OUT. RESTRAINTS REPLACED & PT EDUCATED ON THEIR CONTINUED NEED.
--- NOTE | 2021-07-22 18:49 | NUR ---
PT AWAKES W/ NOXIOUS STIM. ASKS APPROPRIATE QUESTIONS, "WHERE AM I?" "WHY AM HERE?", HOWEVER CONVERSATION PROGRESSES PT BEGINS TO USE PARANOID LANGUAGE & BEGINS TO ACCUSE STAFF OF "STEALING MY STUFF" & "PUTTING ME IN THE CORNER". DESPITE CONTINUED VERBAL REDIRECTION & CONSOLATION, PT CONTINUES TO REPEAT QUESTIONS & CALL OUT FOR HELP. PRECEDEX INC TO 1.4mcg/kg/hr & LIGHTS DIMMED FOR DEC STIM. OSTOMY PRODUCING MOD AMT OF GAS & BROWN STOOL, REQUIRING SEVERAL BURPS OF OSTOMY BAG. SEE PREVIOUS NOTATIONS FOR PT PROGRESSION.
--- NOTE | 2021-07-22 19:05 | NUR ---
Assumed care. Report received from azeem ORTIZ. Pt resting in bed, on room air. Sedated on Precedex at 1.4 mcg/kg/hr. NG in place, to low intermittent suction. PICC in REFUGIO, wnl, IV access in R/forearm. Pt has midline abdominal surgical dressing in place, MICHAEL wound vac applied, good suction. CELIA drain in RLQ. Colostomy bag in place, L/abdomen. Croft catheter in place, to gravity. SWB restraints in place. VS stable, will continue to monitor.
[2021-07-23 03:39] LABS: BASOPHILS ABSOLUTE AUTO 0.03 K/mm3 (0.00-0.23); BASOPHILS PERCENT AUTO 0 % (0-2); EOSINOPHILS ABSOLUTE AUTO 0.01 K/mm3 (0.00-0.68); EOSINOPHILS PERCENT AUTO 0 % (0-6); Hematocrit 30.8 % (37.0-53.0); Hemoglobin 10.4 g/dL (13.5-17.5); IMMATURE GRAN ABSOLUTE AUTO 0.46 K/mm3 (0.00-0.10); IMMATURE GRAN PERCENT AUTO 3 % (0-1); LYMPHOCYTES ABSOLUTE AUTO 2.16 K/mm3 (0.84-5.20); LYMPHOCYTES PERCENT AUTO 13 % (21-46); MONOCYTES ABSOLUTE AUTO 1.15 K/mm3 (0.16-1.47); MONOCYTES PERCENT AUTO 7 % (4-13); Mean Corpuscular HGB 30.4 pg (26.0-34.0); Mean Corpuscular HGB Conc 33.8 g/dL (31.5-36.5); Mean Corpuscular Volume 90 fL (80-100); Mean Platelet Volume 9.5 fL (9.1-12.4); NEUTROPHILS ABSOLUTE AUTO 12.53 K/mm3 (1.96-9.15); NEUTROPHILS PERCENT AUTO 77 % (41-73); Platelet Count 376 K/mm3 (150-400); RDW Coefficient Variation 14.6 % (11.7-14.2); Red Blood Cell Count 3.42 M/mm3 (4.30-5.90); White Blood Cell Count 16.34 K/mm3 (4.00-11.30)
[2021-07-23 03:57] LABS: Anion Gap 1 mmol/L (6-16); Blood Urea Nitrogen 33 mg/dL (8-24); Bun/Creatinine Ratio 64.3 (12.0-20.0); CO2, Blood 34 mmol/L (21-32); Calcium, Blood 7.3 mg/dL (8.5-10.1); Chloride, Blood 100 mmol/L (98-108); Creatinine, Blood 0.51 mg/dL (0.60-1.20); Glomerular Filtration Rate >60 (60-); Glucose, Blood 109 mg/dL (70-99); Magnesium, Blood 2.2 mg/dL (1.6-2.4); Phosphorus, Blood 1.2 mg/dL (2.5-4.9); Potassium, Blood 4.2 mmol/L (3.5-5.5); Sodium, Blood 135 mmol/L (136-145)
--- NOTE | 2021-07-23 06:21 | NUR ---
Shift summary. Pt rested in bed throughout night. On 02 via NC at 2 L/min. Precedex running at 1.4 mcg/kg/hr, TPN 85 ml/hr, NS TKO 10 ml/hr, Sodium Phos 126 ml/hr. Surgical dressing still in place, good seal, good suction. CELIA drain had 40 ml serosanguineous fluid out this shift. Croft in place, 1550 ml out dark mayank urine. Pt awake at times, c/o dry mouth and sore throat, ice chips given for relief. Restraints removed this shift, pt closely monitored. VS stable throughout shift, will continue to monitor and report off to dayshift RN.
--- NOTE | 2021-07-23 07:30 | NUR ---
Received report from Jamarcus ORTIZ. Patient awakens easily to verbal stimuli and is oriented to Person, Place, President, but not time and or year.He was on 2L O2 and placed on RA for eval. He has OG to right nares to LIS with yellow bile output. PICC line to REFUGIO infusing Precedex at 1.4 mcg/kg/hr, TPN at 85 ml/hr, and NS TKO. He has PowerGlide 20ga to DEANN flushed and SL's dressing WNL's, and 18ga IV to RAC flushed and SL'd. He has 18 Fr temp locke draining to gravity light mayank urine and temp of 101.[address] blanket [address]. He has MICHAEL drainto midlinethat has some dried blood, but otherwise C/D/I. CELIA to right LQ with small amout of serous fluid. Ostomy to LUQ with small amount of liquid stool so far. He has tolerated small amount of ice chips. =
--- NOTE | 2021-07-23 09:30 | NUR ---
Patient has seen Dr Jauregui and Dr Morris, no nwe orders. He is able to communicate his needs. He has been tolerating ice chips and OG remains to LIS. Medicated for pain per MAR. He recieved bath and linen change. MAEW but remains weak. Dr Morris stated could leave locke in until more awake
--- NOTE | 2021-07-23 11:30 | NUR ---
Patient is awakening more and has more questions r/t his surgery and length of time for recovery. Precedex has been off for a couple hours. While awake he can be on RA and sats >90%, but while sleeping sats 89-91%MICHAEL drain C/D/I and CELIA drain has minimal output, and ostomy has about 100ml's. His OG remains to LIS and has light green output from constant ice chips. pain is stated to be 4/10 and tolerable.
--- NOTE | 2021-07-23 13:30 | NUR ---
Patient repositioned and boosted. Continues to tolerate ice chips. VSS. Pulled 18 ga IV from RAC as it was leaking and site WNL's. Dumped 100 mls from ostomy. Speech clear and still slow to respond.
--- NOTE | 2021-07-23 15:30 | NUR ---
Patient resting and no significant changes
--- NOTE | 2021-07-23 17:22 | NUR ---
Patient awake and able to communicate his needs. He is on 2L via NC and sats >90%. He hasn REFUGIO PICC an d is infusing TPN at 85 ml/hr, NS TKO x2. CELIA dfraing had 30 ml's of serous fluid, Midline MICHAEL drain C/D/I and ostomy site patent with liquid stool. He has 18Fr Temp locke draining to gravity mayank colored urinehad 1350 out. He continues to tolerate ice chips and right nares NG to LIS 1200 out.
--- NOTE | 2021-07-23 20:34 | NUR ---
ASSUMED PT CARE FROM DIANA SAMUEL AT 1915 PT LYING IN BED; ALERT AND ORIENTED AND ABLE TO MAKE HIS NEEDS KNOWN. VERY ANXIOUS AND REPETITIVELY ASKING THE SAME QUESTIONS, MAINLY FOCUSED AROUND IF HE IS GOING TO . CONTINUE TO REASSURE PT HE IS RECOVERING WELL FROM THE SURGERY, BUT TO PREVENT SOMETHING IN THE FUTURE FROM HAPPENING AGAIN PT SHOULD CONSIDER SPEAKING TO A DIETITIAN, WELL HIS PCP REGARDING MANAGING HIS DIVERTICULITIS. PT CONTINUES TO NEED CONSTANT REINFORCEMENT AND EDUCATION R/T HIS HX OF INTELLECTUAL DELAY/DISABILITY. PICC LINE TO REFUGIO HAS ZOSYN AND TPN INFUSING PER ORDERS. MIDLINE TO DEANN NOT PATENT, THEREFORE, IT WAS PULLED. ABDOMEN HAS MICHAEL DRESSING TO MID ABDOMEN WITH BROWN/YELLOW DRAINAGE NOTED; MOSTLY DRY, BUT SOME AREAS ARE STILL ACTIVELY DRAINING; WILL MOST LIKELY NEED CHANGED TOMORROW. CELIA DRAIN TO RLQ WITH YELLOW/SEROSANGUINEOUS DRAINAGE NOTED. OSTOMY TO LLQ WITH GREEN/BROWN OUTPUT. EDUCATED PT ON HOW TO BURP BAG. PT WILL NEED MODERATE AMOUNTS OF EDUCATION AND REINFORCEDMENT ON HOW TO MANAGE OSTOMY. C/O 6/10 PAIN TO ABDOMEN; MEDICATED WITH MORPHINE PER ORDERS, WELL ATIVAN R/T ANXIETY. PT CONTINUES WITH NYSTAGMUS TO BILATERAL EYES; STATES THIS IS NORMAL AFTER BEING PRESCRIBED THE WRONG EYE GLASS PRESCRIPTION YEARS BACK. PT IS WEAK, BUT ABLE TO MOVE ALL EXTREMITIES AND SHIFT HIPS SLIGHTLY. DOES REQUIRE ASSISTANCE WITH MAJOR TURNS D/T PAIN. CROCKER CATHETER IS PATENT AND DRAINING DARK, TOMMY COLORED URINE TO GRAVITY. COOLING BLANKET REMAINS UNDER PT D/T ELEVATED TEMPS; CURRENTLY 99.2. NG TUBE CONTINUES TO LIS WITH MODERATE AMOUNTS OF BILE OUTPUT NOTED TO CANISTER. SEE SHIFT SUMMARY FOR FURTHER DETAILS
[2021-07-24 03:19] LABS: BASOPHILS ABSOLUTE AUTO 0.04 K/mm3 (0.00-0.23); BASOPHILS PERCENT AUTO 0 % (0-2); EOSINOPHILS ABSOLUTE AUTO 0.05 K/mm3 (0.00-0.68); EOSINOPHILS PERCENT AUTO 0 % (0-6); Hematocrit 32.4 % (37.0-53.0); Hemoglobin 10.9 g/dL (13.5-17.5); IMMATURE GRAN ABSOLUTE AUTO 0.72 K/mm3 (0.00-0.10); IMMATURE GRAN PERCENT AUTO 4 % (0-1); LYMPHOCYTES PERCENT AUTO 16 % (21-46); MONOCYTES ABSOLUTE AUTO 1.41 K/mm3 (0.16-1.47); MONOCYTES PERCENT AUTO 8 % (4-13); Mean Corpuscular HGB 30.2 pg (26.0-34.0); Mean Corpuscular HGB Conc 33.6 g/dL (31.5-36.5); Mean Corpuscular Volume 90 fL (80-100); Mean Platelet Volume 9.4 fL (9.1-12.4); NEUTROPHILS ABSOLUTE AUTO 13.44 K/mm3 (1.96-9.15); NEUTROPHILS PERCENT AUTO 72 % (41-73); Platelet Count 416 K/mm3 (150-400); RDW Coefficient Variation 14.7 % (11.7-14.2); RDW Standard Deviation 47.8 fL (35.1-46.3); Red Blood Cell Count 3.61 M/mm3 (4.30-5.90); White Blood Cell Count 18.56 K/mm3 (4.00-11.30)
[2021-07-24 03:38] LABS: Albumin, Blood 1.3 g/dL (3.4-5.0); Anion Gap 4 mmol/L (6-16); Blood Urea Nitrogen 21 mg/dL (8-24); Bun/Creatinine Ratio 51.7 (12.0-20.0); CO2, Blood 33 mmol/L (21-32); Calcium, Blood 7.5 mg/dL (8.5-10.1); Chloride, Blood 98 mmol/L (98-108); Creatinine, Blood 0.41 mg/dL (0.60-1.20); Glomerular Filtration Rate >60 (60-); Glucose, Blood 101 mg/dL (70-99); Phosphorus, Blood 2.1 mg/dL (2.5-4.9); Potassium, Blood 3.4 mmol/L (3.5-5.5); Sodium, Blood 135 mmol/L (136-145)
--- NOTE | 2021-07-24 06:17 | NUR ---
END OF SHIFT SUMMARY PT REQUIRED MEDICATION EVERY 1-2 HOURS D/T 5/10 PAIN LEVEL. PT RECEIVED 7 DOSES OF 4MG MORPHINE; MAY BENEFIT FROM POWERSAW SUPERVISOR TO BETTER CONTROL PAIN. PT ALSO RECEIVED ATIVAN X3 THIS SHIFT D/T CONTINUOUS STATEMENTS ABOUT NOT WANTING TO AND PT FIXATED ON PAIN TO THE POINT HE WAS UNABLE TO REST OR GET ANY SLEEP. PT GIVEN EDUCATION REGARDING EXPECTING SOME PAIN D/T MAJOR ABDOMINAL SURGERY; HOWEVER, PT HAS POOR COPING SKILLS AND BECAME TEARFUL AND EMOTIONAL DURING A CONVERSATION ABOUT HIS PAIN. LOW GRADE TEMP T/O SHIFT DESPITE COOLING BLANKET UNDERNEATH PT. CURRENTLY AT 99.9. MIDLINE ABDOMINAL MICHAEL DRESSING REMAINS UNCHANGED. CELIA DRAIN REMAINS UNCHANGED. OSTOMY PUT OUT 100CC OF BROWN LIQUID DRAINAGE. CROCKER CATHETER PATENT AND DRAINED CLEAR, ORANGE URINE TO GRAVITY. VSS, SEE FLOWSHEET. WILL CONTINUE TO MONITOR PT UNTIL REPORT IS HANDED OFF TO ONCOMING RN.
--- NOTE | 2021-07-24 07:56 | NUR ---
Received report from Cristel ORTIZ. Patient awake upon entry to room. He is able to communicate his needs and uses call light appropriately. He is 2L O2 via NC and sats 97%. He is tolerating ice chip frequently, He hs NG to right nares on LIS.He has 18Fr temp locke fdraining orange urine to gravity. He has PICC line to REFUGIO and is infusing CPN at 85ml/hr, NS TKO x2. He has CELIA drain to RQintact and pulling serous fluid as output. He has midline dressing with MICHAEL draing that is intact with dried blood on dressing and otherwise C/D/I. He has ostomy to RUQ with small amount of liquid stool. GALO. Patient has yankauer to self suction.
--- NOTE | 2021-07-24 09:30 | NUR ---
Patient states pain ongoing and is requesting liquids. Dr Morris by to assess patient and stated to remains on ice chip and popsicle. He also is starting him on FERRYBOAT CAPTAIN. Patient remains anxious about situation and re-direct as needed. All Surgical sites WNL's and no changes.
--- NOTE | 2021-07-24 11:03 | NUR ---
Visit pt. at referral from ICU nurse. Pt. is awake and in bed. Pt. welcomes my visit. Pt. is unsettled by the pain he is experiencing. Pt. verbalizes his pain. Listen empathetically. Pt. displays evidence of isolation and lonliness. Provide a pastoral presence. Prayed with Pt. Pt. verbalized gratitude for spiritual care visit.
--- NOTE | 2021-07-24 11:31 | NUR ---
Patient being transferred to Surgical Rm 210. He states more comfortable after starting SUPERVISOR WATERPROOFING and needs to be redirected occassionally of use. Surgical site WNL's. Gilbert by to assess for medical management. CPN continues at 85 ml/hr and intermitent Abx. Patient remaisn able to communicate his needs
--- NOTE | 2021-07-24 12:01 | NUR ---
07/24/21 1201 Zora Barksdale VERIFICATIONS: EDIT CHART.
--- NOTE | 2021-07-24 12:30 | NUR ---
Report given to Santana ORTIZ on surg 210. Patient received full bath and linen change.He was taken over in ICU bed with all belongings, pumps and cooling machine. Patients family notified of room change.
--- NOTE | 2021-07-24 14:05 | NUR ---
PT TRANSFERRED FROM ICU TO ROOM 210, ORIENTED TO ROOM SET UP, CALL LIGHT, SAFETY. KNOWS LIMITS, ABLE TO USE CALL LIGHT. PUBLIC SPEAKING INSTRUCTOR IN USE FOR ABD PAIN. ABD DISTENDED, BOWEL TONES NORMOACTIVE ALL QUAD. PECO DRAIN TO ABD MIDLINE WITH SHADOW. CELIA PATENT DRAINING SEROUS FLUID. SCD'S IN USE. PT EATING ICE CHIPS. NG TO LIWS. CPN RUNNING CONT AT 85/HR. COOLING BLANKET SET UP, CURRENT TEMP 100.5. LUNGS CLEAR, OCC PROD COUGH, CLEAR STRINGY SECERTIONS. ENC TO C/DB, GIVEN I.S. LUNGS DIM IN BASES.
--- NOTE | 2021-07-24 18:48 | NUR ---
FLORI- PT ARRIVED 12OO TO [facility] 210. PT A/O X3, INTELECTUAL DELAY. FREQ ASKS THE SAME QUESTIONS, SEEMS TO HAVE TROUBLE COMPREHENDING. COOPERATIVE BUT BASELINE ANXIETY. ABD DISTENDED AND BT PRESENT. NG TO LIWS, SODER OK'D ICE AND POPCYCLES- PT PUT 50ML OLIVE GREEN OUT OF NG TUBE IN 7 HR PERIOD. PT'S PAIN CONTROLLED WITH FENT FILTER PULP WASHER. MEDICATED ONCE WITH ZOFTAN FOR RELEIF OF NAUSEA. PICC WITH CPN INFUSING AT 105/HR. CROCKER CLEAR MED YELLOW. PT C/O INTERMITTANT CRAMPING, RESOLVED ON ITS OWN. PT ALSO PASSED FLATUS. COLOSTOMY PUT OUT 50ML WITH SMALL AMOUNT OF GAS, LEFT IN OCTOMY AND TOLD CHIO RN. COOLING BLANKET FOR TEMP. LABETALOL IV GIVEN PM FOR HIGH BP AND PULSE. REPORT TO CHIO ORTIZ
--- NOTE | 2021-07-25 00:45 | NUR ---
CATHETER CARE DONE USING READYCLEANSE WIPES.
--- NOTE | 2021-07-25 03:53 | NUR ---
SHIFT SUMMARY: PT. ALERT & ORIENTED TO CURRENT SITUATION BUT NEEDS REINFORCEMENT ON HEALTH TEACHINGS & EXPLANATION OF HIS DISEASE PROCESS & CURRENT INTERVENTIONS & GOALS. NGT TO LOW INTERMITTENT SUCTION DRAINING GREENISH GASTRIC DISCHARGES. OSTOMOMY BAG WITH SMALL AMOUNT OF DARK BROWN LIQUID STOOLS. PT. HAD 2 SMALL BMs, ABOUT LESS THAN 10 CC OF DARK BROWN SOFT TO LIQUID STOOLS EACH TIME. STOMA BEEFY PINK TO RED IN COLOR. CELIA DRAIN TO R LOWER QUADRANT DRAINING MINIMAL AMOUNT OF SS DRAINAGE.PT. GIVEN ZOFRAN X2 WITHIN THE SHIFT FOR COMPLAINTS OF NAUSEA. GIVEN ATIVAN IV FOR ANXIETY WHICH MADE PT. ABLE TO SLEEP FOR 2 HOURS THEN SLEPT AGAIN AFTER 2ND DOSE OF ZOFRAN. NO ACUTE CHANGES NOTED. TOTAL OF 1 1/2 CUPS OF ICE CUBES & 150 ML WATER GIVEN.WILL CONTINUE TO MONITOR.
[2021-07-25 04:32] LABS: BASOPHILS ABSOLUTE AUTO 0.08 K/mm3 (0.00-0.23); BASOPHILS PERCENT AUTO 0 % (0-2); EOSINOPHILS ABSOLUTE AUTO 0.07 K/mm3 (0.00-0.68); EOSINOPHILS PERCENT AUTO 0 % (0-6); Hematocrit 32.6 % (37.0-53.0); Hemoglobin 11.3 g/dL (13.5-17.5); IMMATURE GRAN ABSOLUTE AUTO 1.14 K/mm3 (0.00-0.10); IMMATURE GRAN PERCENT AUTO 5 % (0-1); LYMPHOCYTES ABSOLUTE AUTO 2.25 K/mm3 (0.84-5.20); LYMPHOCYTES PERCENT AUTO 9 % (21-46); MONOCYTES ABSOLUTE AUTO 1.61 K/mm3 (0.16-1.47); MONOCYTES PERCENT AUTO 7 % (4-13); Mean Corpuscular HGB 30.4 pg (26.0-34.0); Mean Corpuscular HGB Conc 34.7 g/dL (31.5-36.5); Mean Corpuscular Volume 88 fL (80-100); Mean Platelet Volume 9.4 fL (9.1-12.4); NEUTROPHILS ABSOLUTE AUTO 18.81 K/mm3 (1.96-9.15); NEUTROPHILS PERCENT AUTO 79 % (41-73); Platelet Count 401 K/mm3 (150-400); RDW Coefficient Variation 14.8 % (11.7-14.2); Red Blood Cell Count 3.72 M/mm3 (4.30-5.90); White Blood Cell Count 23.96 K/mm3 (4.00-11.30)
[2021-07-25 04:58] LABS: Alanine Aminotransfer (ALT/SGP 76 U/L (12-78); Albumin, Blood 1.4 g/dL (3.4-5.0); Albumin/Globulin Ratio 0.4 (0.8-1.8); Alk Phos 165 U/L (50-136); Anion Gap 5 mmol/L (6-16); Aspartate Aminotrans (AST/SGOT 124 U/L (12-37); Bilirubin, Total 3.4 mg/dL (0.1-1.0); Blood Urea Nitrogen 18 mg/dL (8-24); Bun/Creatinine Ratio 51.6 (12.0-20.0); CO2, Blood 30 mmol/L (21-32); Calcium, Blood 7.6 mg/dL (8.5-10.1); Chloride, Blood 99 mmol/L (98-108); Creatinine, Blood 0.35 mg/dL (0.60-1.20); Globulin, Blood 3.5 g/dL (2.2-4.0); Glomerular Filtration Rate >60 (60-); Glucose, Blood 129 mg/dL (70-99); Magnesium, Blood 1.7 mg/dL (1.6-2.4); Phosphorus, Blood 1.8 mg/dL (2.5-4.9); Potassium, Blood 3.5 mmol/L (3.5-5.5); Sodium, Blood 134 mmol/L (136-145); Total Protein, Blood 4.9 g/dL (6.4-8.2)
--- NOTE | 2021-07-25 05:51 | NUR ---
FENTANYL TRANSMISSIONS SYSTEMS OPERATOR READING AT 30 MCG AT THE BEGINNING OF SHIFT, READING OF 200 MCG AT THE END OF SHIFT, TOTAL USED BY PT = 170 MCG.
--- NOTE | 2021-07-25 12:47 | NUR ---
NAYA Initial Interview with Community Otolaryngology Nurse 1. Who did you speak with? Spoke with patient 2. What is the patient's prior level of functions? Patient lives independently in subsidized housing (apartments) in [place]. Patient states his parents and he has brothers whom live out of state, but he has no contact with them because he states they are involved in illegal activity. He has a close friend Gretchen Gibson ([phone]) whom he trusts and helps him when needed. She will visit him today around 1700 to bring his cell phone. Patient is able to perform ADLs independently. 3. Does patient still drive? No, friends provides transportation as needed. He rides his bike and friends provide transportation as needed. 4. POA/PCP/NOK: NOK: Gretchen Gibson close friend [phone] [facility] Chayito Cruz [phone]/PCP Dr. Keshav Garcia MD [facility] 5. ANTICIPATED DISCHARGE NEEDS/GOALS: TBD/Coordination with [facility] social service needs (caregiving services/home health/Community Living case management). - DME: TBD/ostomy -Home Health: TBD/[facility] (Caroline) -Medication Management: self -Preferred Pharmacy-[facility] 6. List barriers to discharge: social science instructor coordination/needs 7. Discharge Plan: today: TBD-Home with Home Health/Follow up with PCP within 7 days (ADE will coordinate) 8. PCP Follow up appointment: Will be scheduled within seven calendar days of discharge. Explained importance of scheduling and attendance. 9. OTHER COMMENTS: [facility] ORTIZtank worker is assisting with patient's discharge plan/transitional care needs.
--- NOTE | 2021-07-25 19:25 | NUR ---
SHIFT SUMMARY A&O X4, INTELLECTUAL FUNC DISABILITY. ANXIETY ABOUT DIAGNOSIS AND CARE, FREQUENTLY ASKS THE SAME QUESTIONS, REQUIRES REINFORCMENT. S/P SIGMOID COLECTOMY W/ OSTOMY TO LLQ. STOME IS PINK/RED, DRAINING DARK BROWN/GREEN STOOL AND OCCASIONAL FLATUS. PT UNABLE TO EMPTY OSTOMY BUT CALLS WHEN IT NEEDS EMPTIED. MIDLINE INCISION W/ MICHAEL IN PLACE, MOD AMT OF DRAINAGE PRESENT BUT DRY AND HAS GOOD SUCTION. CELIA TO R SIDE. ABD PAIN IS MANAGED W/ DILAUDID WOOD CUT ENGRAVER. PT NEEDS FREQ REMINDERS TO USE HIS WOOD CUT ENGRAVER BUTTON. PT IS NPO ALTHOUGH DR. DOUGLAS OK'D SMALL SIPS AND POPSICLES, NEEDS REMINDED THAT ONLY SIPS IS OKAY. NG TUBE IN PLACE AND CLAMPED T/O DAY. TO START LOW INT SUCTION FOR EVENING, PER DR. DOUGLAS. CROCKER REMOVED TODAY AND VOIDING WELL. TELE IN PLACE, TACHY T/O SHIFT, MEDICATED W/ LABATELOL PER EMAR. WILL REPORT TO ONCOMING RN.
[2021-07-26 05:17] LABS: BASOPHILS ABSOLUTE AUTO 0.06 K/mm3 (0.00-0.23); BASOPHILS PERCENT AUTO 0 % (0-2); EOSINOPHILS ABSOLUTE AUTO 0.08 K/mm3 (0.00-0.68); EOSINOPHILS PERCENT AUTO 0 % (0-6); Hematocrit 30.1 % (37.0-53.0); Hemoglobin 10.5 g/dL (13.5-17.5); IMMATURE GRAN ABSOLUTE AUTO 0.93 K/mm3 (0.00-0.10); IMMATURE GRAN PERCENT AUTO 4 % (0-1); LYMPHOCYTES ABSOLUTE AUTO 3.11 K/mm3 (0.84-5.20); LYMPHOCYTES PERCENT AUTO 14 % (21-46); MONOCYTES ABSOLUTE AUTO 1.86 K/mm3 (0.16-1.47); MONOCYTES PERCENT AUTO 8 % (4-13); Mean Corpuscular HGB 30.3 pg (26.0-34.0); Mean Corpuscular HGB Conc 34.9 g/dL (31.5-36.5); Mean Corpuscular Volume 87 fL (80-100); Mean Platelet Volume 9.9 fL (9.1-12.4); NEUTROPHILS ABSOLUTE AUTO 16.96 K/mm3 (1.96-9.15); NEUTROPHILS PERCENT AUTO 74 % (41-73); Platelet Count 387 K/mm3 (150-400); RDW Coefficient Variation 15.2 % (11.7-14.2); RDW Standard Deviation 47.2 fL (35.1-46.3); Red Blood Cell Count 3.47 M/mm3 (4.30-5.90)
[2021-07-26 05:41] LABS: Magnesium, Blood 1.9 mg/dL (1.6-2.4); Phosphorus, Blood 2.5 mg/dL (2.5-4.9)
--- NOTE | 2021-07-26 06:05 | NUR ---
ALERT AND ORIENTED X4. VERY PLEASANT AND WITH MANY QUESTIONS. LUNGS ARE CLEAR. BOWEL SOUNDS ARE HYPOACTIVE, SEMI FIRM ABD. INCISION COVERED WITH MICHAEL; HAS SOME DRY BLOOD SHADOW. COLOSTOMY OUTPUT BROWN LIQUID BM; SMALL AMOUT. PT STATES PASSING GAS. STOMA PINK WML. CELIA SS 25 ML OUT TONIGHT. NG TUBE TO SUCTION LIS 425ML GREEN. PT TAKING SIPS OF WATER. DILAUDID PAINTING INSTRUCTOR USED 6.5 MG. SBP AND HR IMPROVED. NO INSULIN NEEDED. VOIDING WELL. ONCE ATIVAN WAS GIVEN FOR ANXIETY WITH GOOD RESULTS.
--- NOTE | 2021-07-26 11:04 | NUR ---
NYSTAGMUS APPEARS MORE SEVERE TODAY. PT DENIES ANY VISION CHANGES AND REPORTS "IT IS NORMAL, & HAVE HAD IT FOR A LONG TIME". CARE DIRECTOR RN NOTIFIED DR ARAIZA, NO NEW ORDERS AT THIS TIME. WILL CONTINUE TO MONITOR FOR CHANGES.
--- NOTE | 2021-07-26 15:20 | NUR ---
MIDLINE MICHAEL DRESSING CHANGED TO A MEDIPORE DRESSING AT THE BEDSIDE BY DR. DOUGLAS. CELIA DRAIN REMOVED BY DR. DOUGLAS AT BEDSIDE, GUAZE AND SURGICAL TAPE IN PLACE.
--- NOTE | 2021-07-26 18:09 | NUR ---
CHANGED OATIENTS OSTOMY APPLIANCE D/T LEAKING. USED 2 07/26. CLEANED SKIN AROUND STOMA, SKIN APPEARS WNL. DEMONSTARTED FOR PATIENT DURING CHANGE, CONT TO ENCOURAGE PT TO HELP W/ OSTOMY.
--- NOTE | 2021-07-26 18:10 | NUR ---
SHIFT SUMMARY PT IS A/O X4, HAS INTELLECTUAL FUNCT DISABILITY, POOR UNDERSTANDING OF DIAGNOSIS AND OSTOMY. ASKS QUESTIONS FREQ & REPETITIVE. VSS, REMAINS TACHY T/O SHIFT, MEDICATED WITH LABETALOL PER EMAR. POD 5 SIGMOID COLECTOMY W/ OSTOMY. SMALL AMT OF LIQUID BROWN OUTPUT THIS SHIFT. CHANGED OSTOMY APPLIANCE, CHANGED MIDLINE DRESSING FROM MICHAEL TO MEDIPORE W/ DR. DOUGLAS. CELIA DRAIN REMOVED AND SITE COVERED W/ GUAZE & SURGICAL TAPE. NG TUBE IN PLACE TO LOW INT SUCTION, LIGHT GREEN DRAINAGE T/O SHIFT. REMIANS NPO W/ SIPS & CHIPS. PAIN IS MANAGED WELL W/ DILAUDID SOAP INSPECTOR. PICC DRESSING CHANGED TODAY. MEDICATED X2 FOR ANXIETY PER EMAR. PT ANXIOUS ABOUT LENGTH OF TIME W/ OSTOMY, GETTING HOME, & WHAT HAPPENED TO HIS CLOTHES. PT REMAINS PLEASANT WITH STAFF BUT REQUIRES FREQ REINFORCEMENT. NEEDS REMINDERS ABOUT SOAP INSPECTOR USE AND CALL LIGHT USE. WILL REPORT TO ONCOMING RN.
--- NOTE | 2021-07-26 18:53 | NUR ---
NOTIFIED BY TELE MONITOR JAXON OF HR IN 140'S. PT APPEARS & REPORTS TO BE VERY ANXIOUS. CALLED DR LOW, RECIEVED ORDERS FOR ONE TIME DOSE OF ATIVAN. REPORTED PT STATUS TO NOC RN.
--- NOTE | 2021-07-26 21:04 | NUR ---
PT HAS HR OF >140, SUSTAINED FOR APPROX 1 HR, SCHEDULED LABETALOL 10MG GIVEN AT 2010, HR WAS >120. CALLED MD TO INFORM THEM OF SITUATION.
[2021-07-27 04:32] LABS: Hematocrit 33.1 % (37.0-53.0); Hemoglobin 11.6 g/dL (13.5-17.5); Mean Corpuscular HGB 30.5 pg (26.0-34.0); Mean Corpuscular Volume 87 fL (80-100); Mean Platelet Volume 10.3 fL (9.1-12.4); Platelet Count 407 K/mm3 (150-400); RDW Standard Deviation 47.7 fL (35.1-46.3); White Blood Cell Count 31.54 K/mm3 (4.00-11.30)
--- NOTE | 2021-07-27 04:42 | NUR ---
PT IS DISORIENTED TO SITUATION, ORIENTED TO TIME, PLACE AND PERSON. PT HAS BEEN SINUS TACH MOST OF THIS SHIFT, RANGING FROM 120 TO 145, AT 0330 TELE CALED TO INFORM THIS NURSE THAT PT STARTED HAVING MULTIFOCAL AND TRIGEMINY PVCS, INFORMED MD AND OBTAINED AN ORDER FOR MAINTENANCE FLUIDS, MD ALSO ORDERED LOPRESSOR 5MG IV BUT THIS MEDICINE IS NOT AVAILABLE TO THE FLOOR, MD STATED TO CONTINUE WITH MAINTENANCE FLUIDS AND MONITOR PT. PT HAS HAD 2 LOOSE STOOLS THIS SHIFT, APPLIANCE HAS HAD SOME FLATUS BUT NO STOOL. PT HAS REQUESTED WATER MULTIPLE TIMES AND REQUIRES EDUCATION ON WHY THEY ARE NPO AND NOT ALLOWED WATER OR SODA. MIDLINE DRESSING CHANGED THIS SHIFT, NEW DRESSING CDI. PT IS A MODERATE ASSIST IN BED AND HAS NOT BEEN OOB. WILL CONTINUE TO MONITOR PT ANY CHANGES.
[2021-07-27 04:47] LABS: Magnesium, Blood 1.9 mg/dL (1.6-2.4); Phosphorus, Blood 2.7 mg/dL (2.5-4.9)
[2021-07-27 05:36] LABS: BAND PERCENT MAN 13 % (0-8); BASOPHILS PERCENT MAN 0 % (0-2); EOSINOPHILS PERCENT MAN 0 % (0-6); LYMPHOCYTES ABSOLUTE MAN 3.78 K/mm3 (0.84-5.20); LYMPHOCYTES PERCENT MAN 12 % (21-46); MONOCYTES ABSOLUTE MAN 3.78 K/mm3 (0.16-1.47); MONOCYTES PERCENT MAN 12 % (4-13); MYELOCYTE ABSOLUTE MAN 0.63 K/mm3 (0.00-0.00); MYELOCYTE PERCENT MAN 2 % (0-0); NEUTROPHILS ABSOLUTE MAN 23.33 K/mm3 (1.96-9.15); SEG NEUTROPHILS PERCENT MAN 61 % (41-73); TOTAL CELLS COUNTED 100
--- NOTE | 2021-07-27 10:58 | NUR ---
NOTIFIED DR ARAIZA AND DR MACDONALD OF TELE'S REPORT THAT PT HAD SOME BIGEMINAL PVCS OVER NIGHT.
--- NOTE | 2021-07-27 11:11 | NUR ---
NOTIFIED DR MACDONALD WBC RISING.
[2021-07-27 12:31] LABS: Alanine Aminotransfer (ALT/SGP 82 U/L (12-78); Albumin, Blood 1.3 g/dL (3.4-5.0); Albumin/Globulin Ratio 0.3 (0.8-1.8); Alk Phos 162 U/L (50-136); Anion Gap 7 mmol/L (6-16); Aspartate Aminotrans (AST/SGOT 79 U/L (12-37); Bilirubin, Total 3.5 mg/dL (0.1-1.0); Blood Urea Nitrogen 24 mg/dL (8-24); CO2, Blood 27 mmol/L (21-32); Calcium, Blood 7.5 mg/dL (8.5-10.1); Chloride, Blood 101 mmol/L (98-108); Creatinine, Blood 0.42 mg/dL (0.60-1.20); Globulin, Blood 3.8 g/dL (2.2-4.0); Glomerular Filtration Rate >60 (60-); Glucose, Blood 118 mg/dL (70-99); Sodium, Blood 135 mmol/L (136-145); Total Protein, Blood 5.1 g/dL (6.4-8.2)
--- NOTE | 2021-07-27 14:35 | NUR ---
pt to imaging
--- NOTE | 2021-07-27 16:01 | NUR ---
ear plugs provided for pt
--- NOTE | 2021-07-27 17:01 | NUR ---
SUMMARY NO ACUTE CHANGES T/O SHIFT. PT NEEDS FREQUENT REASSURANCE AND REINFORCEMENT OF ORDERS FOR PO INTAKE. WAS ALLOWED PER ORDERS ONE GLASS OF APPLE JUICE THIS SHIFT. ADVISED PT TO TAKE SLOWLY; PT UNABLE TO CONTROL SELF ON PO INTAKE. NG TO LIS, DRAINING DARK GREEN FLUID. PT REPORTED OSTOMY PASSED FLATUS. SMALL AMOUNT LIQUID STOOL NOTED IN OSTOMY BAG. DRESSING TO MIDLINE INCISION HAS MOD AMT SS DRAINAGE NOTED AT INFERIOR END. PT VOIDING TOMMY URINE AND HAD LARGE LIQUID BM RECTALLY THIS SHIFT. CALL LIGHT AND FORECLOSURE PARALEGAL IN REACH. IV FLUIDS INFUSING PER ORDERS.
[2021-07-28 04:50] LABS: BASOPHILS ABSOLUTE AUTO 0.04 K/mm3 (0.00-0.23); BASOPHILS PERCENT AUTO 0 % (0-2); EOSINOPHILS ABSOLUTE AUTO 0.05 K/mm3 (0.00-0.68); EOSINOPHILS PERCENT AUTO 0 % (0-6); Hematocrit 26.7 % (37.0-53.0); Hemoglobin 9.1 g/dL (13.5-17.5); IMMATURE GRAN PERCENT AUTO 2 % (0-1); LYMPHOCYTES ABSOLUTE AUTO 2.32 K/mm3 (0.84-5.20); LYMPHOCYTES PERCENT AUTO 12 % (21-46); MONOCYTES ABSOLUTE AUTO 1.76 K/mm3 (0.16-1.47); MONOCYTES PERCENT AUTO 9 % (4-13); Mean Corpuscular HGB Conc 34.1 g/dL (31.5-36.5); Mean Corpuscular Volume 88 fL (80-100); Mean Platelet Volume 10.7 fL (9.1-12.4); NEUTROPHILS ABSOLUTE AUTO 15.19 K/mm3 (1.96-9.15); NEUTROPHILS PERCENT AUTO 77 % (41-73); Platelet Count 387 K/mm3 (150-400); RDW Coefficient Variation 14.9 % (11.7-14.2); RDW Standard Deviation 47.5 fL (35.1-46.3); Red Blood Cell Count 3.03 M/mm3 (4.30-5.90); White Blood Cell Count 19.66 K/mm3 (4.00-11.30)
--- NOTE | 2021-07-28 04:52 | NUR ---
SHIFT SUMMARY POD8 SIG COLECTOMY WITH COLOSTOMY, ABDOMINAL DRESSING CHANGES THIS AM FOR DRAINAGE. OSTOMY PINK AND BEEFY PASSING FLATUS AND VERY LITTLE AMOUNT OF STOOL. VOIDING TOMMY URINE. TOLERATING SIPS AND CHIPS THIS SHIFT. NAUSEA REPORTED ONE TIME AT BEGINING OF SHIFT. NG TUBE DRAINING LIGHT GREEN FLUID. PT REPORTS PAIN IN HIS R SIDE, NON PHARMALOGIC METHODS TO RELIEVE PAIN SUCH WARM RAG, PILLOW TO REPOSITION, AND COOL RAG. DILAUDID FLOW COORDINATOR SUFFICIENT TO MAINTAIN PAIN IN TOLERABLE LEVEL. NO ACUTE CHANGES IN VITAL SIGNS. PT UNABLE TO SLEEP AND APPEARS ANXIOUS, TREATED PER EMAR. WILL CONTINUE TO MONITOR AND REPORT TO ONCOMING RN.
[2021-07-28 05:06] LABS: Magnesium, Blood 1.9 mg/dL (1.6-2.4); Phosphorus, Blood 2.4 mg/dL (2.5-4.9)
--- NOTE | 2021-07-28 18:40 | NUR ---
SHIFT SUMMARY PATIENT ALERT AND ORIENTED. WORKED WELL WITH PHYSICAL THERAPY IN ROOM. PAIN CONTROLLED WITH DILAUDID INSULATION WORKER FURNACE INSTALLER. ABD DISTENDED WITH HYPOACTIVE BOWEL TONES. MIDLINE ABD INCISION C/D/I. COLOSTOMY WITH MINIMAL LIQUID OUTPUT, SOME GAS. NG TUBE TO INTERMITTANT SUCTION. TOLERATING OCCASIONAL SIPS OF WATER, JUICE, AND ICE CHIPS. USES URINAL. ROUTINE ABX AND CPN THROUGH PICC.
--- NOTE | 2021-07-29 03:16 | NUR ---
SHIFT SUMMARY: PT.ALERT & ORIENTED, EXPRESSED WORRIES OF HIM BEING AT RISK OF GETTING COVID. REASSURED THAT WE ARE PROTECTING HIM BY WEARING MASK & FOLLOWING HOSPITAL PROTOCOLS. MIDLINE INCISION C/D/I. COLOSTOMY BAG WITH SMALL AMOUNT OF DARK BROWN LIQUIS STOOLS. URINE OUTPUT TOMMY TO ORANGE IN COLOR. PAIN MANAGED BY DILAUDED PHARMACEUTICAL SALES. CPN AT 105ML/MIN. INFUSING WELL. NO ACUTE CHANGES NOTED, WILL CONTINUE TO MONITOR.
--- NOTE | 2021-07-29 04:23 | NUR ---
CORRECTION ON PREVIOUS NOTE RE: COLOSTOMY OUTPUT. OUTPUT OF 5 ML OF CLEAR BROWNISH LIQUID STOOL & BAG 3/4 FILLED WITH GAS, BURPED.NGT WITH LIGHT GREEN OUTPUT. FREQUENT ROUNDING & REPOSITIONING DONE.
[2021-07-29 06:18] LABS: BASOPHILS ABSOLUTE AUTO 0.05 K/mm3 (0.00-0.23); BASOPHILS PERCENT AUTO 0 % (0-2); EOSINOPHILS ABSOLUTE AUTO 0.08 K/mm3 (0.00-0.68); EOSINOPHILS PERCENT AUTO 1 % (0-6); Hematocrit 27.5 % (37.0-53.0); Hemoglobin 9.1 g/dL (13.5-17.5); IMMATURE GRAN ABSOLUTE AUTO 0.33 K/mm3 (0.00-0.10); IMMATURE GRAN PERCENT AUTO 3 % (0-1); LYMPHOCYTES ABSOLUTE AUTO 1.79 K/mm3 (0.84-5.20); LYMPHOCYTES PERCENT AUTO 14 % (21-46); MONOCYTES ABSOLUTE AUTO 1.25 K/mm3 (0.16-1.47); MONOCYTES PERCENT AUTO 10 % (4-13); Mean Corpuscular HGB 29.4 pg (26.0-34.0); Mean Corpuscular HGB Conc 33.1 g/dL (31.5-36.5); Mean Corpuscular Volume 89 fL (80-100); Mean Platelet Volume 10.7 fL (9.1-12.4); NEUTROPHILS ABSOLUTE AUTO 9.46 K/mm3 (1.96-9.15); NEUTROPHILS PERCENT AUTO 73 % (41-73); NRBC ABSOLUTE 0.02 K/mm3 (0.00-0.02); NRBC Auto 0.2 /100 WBC (0.0-0.2); Platelet Count 429 K/mm3 (150-400); RDW Coefficient Variation 15.2 % (11.7-14.2); RDW Standard Deviation 47.9 fL (35.1-46.3); White Blood Cell Count 12.96 K/mm3 (4.00-11.30)
[2021-07-29 06:55] LABS: Magnesium, Blood 1.8 mg/dL (1.6-2.4); Phosphorus, Blood 2.8 mg/dL (2.5-4.9); Triglycerides 195 mg/dL (30-140)
[2021-07-29 10:14] LABS: Anion Gap 6 mmol/L (6-16); Blood Urea Nitrogen 19 mg/dL (8-24); Bun/Creatinine Ratio 52.2 (12.0-20.0); CO2, Blood 30 mmol/L (21-32); Calcium, Blood 7.6 mg/dL (8.5-10.1); Chloride, Blood 98 mmol/L (98-108); Creatinine, Blood 0.36 mg/dL (0.60-1.20); Glomerular Filtration Rate >60 (60-); Glucose, Blood 114 mg/dL (70-99); Potassium, Blood 3.4 mmol/L (3.5-5.5); Sodium, Blood 134 mmol/L (136-145)
--- NOTE | 2021-07-29 15:06 | NUR ---
Received referral from [facility] Frame Feeder (Daniela Muniz) on 07/26/2021. Patient is to discharge 08/02/2021 with orders for home health and elected [facility]. Met with patient to further discuss the above. Patient is agreeable to the above. Discussed homebound status definition with patient. Patient verbalized understanding. Discussed what home health is vs what it is not (in home caregivers/housekeeping). Patient verbalized understanding. Discussed the next steps in the process of an initial assessment to determine frequency of visits. Again patient verbalized understanding. Offered a chance for patient to ask questions regarding the above of which there were none. At this time patient has no discharge orders entered. Will continue to monitor and follow for discharge. Tracy Mackenzie Referral Liaison
--- NOTE | 2021-07-29 17:54 | NUR ---
PATIENT UP TODAY WITH PHYSICAL THERAPY X 2. UP TO CHAIR FOR A FEW HOURS AND TOLERATE WELL. DR. DOUGLAS IN THIS A.M. AND NG CLAMPED. PATIENT NOW ON CLEAR LIQUID DIET. HAD A JELLO AND APPLE JUICE AND TOLERATE WELL. LATER HAD 1/2 A BROTH AND STOPPED SAYING HE FELT BLOATED. BROTH TAKEN AWAY AND PT. SIPPING ON WATER. TONIGHT FOR DINNER PT. STATES HE IS GOING TO TAKE IT SLOW, SIPPING ON AN APPLE JUICE. DENIES NAUSEA. MUCH FLATUS (X 3) FULL BAG RELEASED TODAY. SMALL AMOUNT BROWN FLUID IN POUCH, APPEARS TO BE APPROX 10CC. AT THIS TIME IS VERY ANXIOUS REGARDING POSSIBLE NEED FOR REHAB AND "GOING TO A [facility]".IS VERY ANXIOUS AND UPSET "MY MOM AT [facility]". REASSURANCE GIVEN AND DISCUSSED REHAB AND PURPOSE. PATIENT VERBALIZE THAT HE FELT IT WAS A PUNISHMENT. 1;1 VERBAL HELPFUL. ATIVAN 1 MG GIVEN PER PT. REQUEST. PT DID STATE THAT PATIENT AMBULATED WELL SMALL DISTANCES X 3 TODAY.
--- NOTE | 2021-07-30 03:11 | NUR ---
PT IS A&OX4 AND IS ABLE TO MAKE NEEDS KNOWN. MIDLINE DRESSING IS CDI, OSTOMY PRODUCING LIQUID BROWN STOOL AND PASSAGE OF FLATUS NOTED. PT REPORTS ANXIETY SURROUNDING CARE, EDUCATION OF CONDITION HELPFUL. REMAINS ON PLASTER HELPER PUMP TO MANAGE PAIN, CPN RUNNING AT GOAL RATE, NG TUBE IN PLACE NO NAUSEA REPORTED THIS SHIFT.
[2021-07-30 07:29] LABS: BASOPHILS ABSOLUTE AUTO 0.04 K/mm3 (0.00-0.23); BASOPHILS PERCENT AUTO 0 % (0-2); EOSINOPHILS ABSOLUTE AUTO 0.07 K/mm3 (0.00-0.68); EOSINOPHILS PERCENT AUTO 1 % (0-6); Hematocrit 23.3 % (37.0-53.0); Hemoglobin 8.4 g/dL (13.5-17.5); IMMATURE GRAN ABSOLUTE AUTO 0.34 K/mm3 (0.00-0.10); IMMATURE GRAN PERCENT AUTO 3 % (0-1); LYMPHOCYTES ABSOLUTE AUTO 1.72 K/mm3 (0.84-5.20); LYMPHOCYTES PERCENT AUTO 16 % (21-46); MONOCYTES PERCENT AUTO 11 % (4-13); Mean Corpuscular HGB 31.5 pg (26.0-34.0); Mean Corpuscular HGB Conc 32.6 g/dL (31.5-36.5); Mean Corpuscular Volume 97 fL (80-100); Mean Platelet Volume 11.2 fL (9.1-12.4); NEUTROPHILS ABSOLUTE AUTO 7.17 K/mm3 (1.96-9.15); NEUTROPHILS PERCENT AUTO 68 % (41-73); NRBC Auto 0.9 /100 WBC (0.0-0.2); Platelet Count 415 K/mm3 (150-400); RDW Coefficient Variation 16.3 % (11.7-14.2); RDW Standard Deviation 57.1 fL (35.1-46.3); Red Blood Cell Count 2.41 M/mm3 (4.30-5.90); White Blood Cell Count 10.54 K/mm3 (4.00-11.30)
[2021-07-30 07:41] LABS: Magnesium, Blood 2.4 mg/dL (1.6-2.4)
[2021-07-30 08:17] LABS: Alanine Aminotransfer (ALT/SGP 58 U/L (12-78); Albumin/Globulin Ratio 0.3 (0.8-1.8); Alk Phos 197 U/L (50-136); Aspartate Aminotrans (AST/SGOT 57 U/L (12-37); Blood Urea Nitrogen 14 mg/dL (8-24); Bun/Creatinine Ratio 31.3 (12.0-20.0); CO2, Blood 18 mmol/L (21-32); Calcium, Blood 6.8 mg/dL (8.5-10.1); Chloride, Blood 81 mmol/L (98-108); Creatinine, Blood 0.45 mg/dL (0.60-1.20); Globulin, Blood 3.2 g/dL (2.2-4.0); Glomerular Filtration Rate >60 (60-); Glucose, Blood 1545 mg/dL (70-99); Potassium, Blood 5.1 mmol/L (3.5-5.5); Total Protein, Blood 4.2 g/dL (6.4-8.2)
--- NOTE | 2021-07-30 08:17 | NUR ---
DR DOUGLAS IN THIS A.M., REMOVED NG. PATIENT REPORTS NO NAUSEA THRU OUT NOC SHIFT.
[2021-07-30 08:18] LABS: Anion Gap 18 mmol/L (6-16); Phosphorus, Blood 7.8 mg/dL (2.5-4.9)
[2021-07-30 08:20] LABS: Sodium, Blood 117 mmol/L (136-145)
[2021-07-30 09:03] LABS: Alanine Aminotransfer (ALT/SGP 75 U/L (12-78); Albumin, Blood 1.3 g/dL (3.4-5.0); Albumin/Globulin Ratio 0.3 (0.8-1.8); Alk Phos 310 U/L (50-136); Aspartate Aminotrans (AST/SGOT 60 U/L (12-37); Bilirubin, Total 1.4 mg/dL (0.1-1.0); Blood Urea Nitrogen 16 mg/dL (8-24); Bun/Creatinine Ratio 40.9 (12.0-20.0); CO2, Blood 28 mmol/L (21-32); Calcium, Blood 7.7 mg/dL (8.5-10.1); Chloride, Blood 99 mmol/L (98-108); Creatinine, Blood 0.39 mg/dL (0.60-1.20); Globulin, Blood 4.1 g/dL (2.2-4.0); Glomerular Filtration Rate >60 (60-); Glucose, Blood 100 mg/dL (70-99); Total Protein, Blood 5.4 g/dL (6.4-8.2)
[2021-07-30 09:06] LABS: Anion Gap 8 mmol/L (6-16); Potassium, Blood 3.1 mmol/L (3.5-5.5); Sodium, Blood 135 mmol/L (136-145)
--- NOTE | 2021-07-30 13:33 | NUR ---
DILAUDID/IN HOUSE COUNSEL DC'D PER DR. DOUGLAS ORDERS EARLIER. NORCO GIVEN FOR ABD. PAIN AND PT. VERBALIZE RELIEF. CONTINUE TO DENY NAUSEA, TAKING CLEAR LIQUIDS. UP AND AMBULATE TODAY WITH PT, TOLERATE WELL. AT THIS TIME IS SITTING UP IN LOUNGER CHAIR. SMALL AMOUNT LIQUID BROWN STOOL IN OSTOMY POUCH, FLATUS RELEASED A FEW TIMES DURING SHIFT. PATIENT BECOMES AGITATED WHEN SUBJECT OF REHAB COMES UP. AT THIS TIME IS RESTING WITHOUT COMPLAINT. DRESSING TO ABDOMEN REMOVED WITH MODERATE AMOUNT SEROUSANG OLD DRAINAGE. INCISION WELL APPROXIMATED, NEW DRSG. APPLIED.
--- NOTE | 2021-07-30 16:27 | NUR ---
Pt. is awake and in bed. Pt. welcomes my visit. Pt. is unsettled about the length of his prognosis, and his current liquid diet. Listen empathetically. Establish rapport. Pt. has no close family. Explored the pts. personal claudia and belief. Give pastoral auto travel counselor. [place] with Pt. (he grabs my hand). Pt. displays evidence of agreement. Pt. verbalizes gratitude for the spiritual care visit and invites me to return.
[2021-07-31 05:03] LABS: Alanine Aminotransfer (ALT/SGP 74 U/L (12-78); Albumin, Blood 1.3 g/dL (3.4-5.0); Albumin/Globulin Ratio 0.3 (0.8-1.8); Alk Phos 304 U/L (50-136); Anion Gap 5 mmol/L (6-16); Aspartate Aminotrans (AST/SGOT 50 U/L (12-37); Blood Urea Nitrogen 14 mg/dL (8-24); Bun/Creatinine Ratio 33.5 (12.0-20.0); CO2, Blood 30 mmol/L (21-32); Calcium, Blood 7.3 mg/dL (8.5-10.1); Chloride, Blood 102 mmol/L (98-108); Creatinine, Blood 0.42 mg/dL (0.60-1.20); Globulin, Blood 3.8 g/dL (2.2-4.0); Glomerular Filtration Rate >60 (60-); Glucose, Blood 104 mg/dL (70-99); Potassium, Blood 3.1 mmol/L (3.5-5.5); Sodium, Blood 137 mmol/L (136-145); Total Protein, Blood 5.1 g/dL (6.4-8.2)
--- NOTE | 2021-07-31 06:41 | NUR ---
SUMMARY PT DISCOMFORT TX WELL WITH PO NORCO. PT DID HAVE ONE EPISODE OF NAUSEA AND WAS RELIEVED W/ ZOFRAN. PT HAD TWO EPISODES OF EXCESSIVE SWEATING WITHOUT FEVER. PT VOIDING WELL. PT PASSING GAS AND LIQUID STOOL VIA COLOSTOMY. NO OTHER ISSUES NOTED. PT CURRENTLY SLEEPING IN NO DISTRESS. CALL LIGHT IN REACH.
--- NOTE | 2021-07-31 10:17 | NUR ---
REPORT GIVEN AND CARE TURNED OVER TO SEAN Read RN.
--- NOTE | 2021-07-31 10:52 | NUR ---
Received notification from [facility] canal superintendent (Sharon Almaraz) that due to current workflow and acuity of current patients this agency will be unable to meet patient's immediate needs upon discharge. Contacted [facility] Nanny/Household Manager (Daniela Muniz) regarding the above. No further interventions required. Tracy Mackenzie Referral Liaison
--- NOTE | 2021-08-01 04:52 | NUR ---
SUMMARY PT HAS SOME NOTED PERIODS OF SLEEP APNEA THIS SHIFT. PT HAD A NASAL CANNULA PLACED AND HE RESPONDED WELL. PT WOULD BENEFIT FROM SLEEP STUDY POSSIBLY. PT DISCOMFORT WAS TX WELL THROUGHOUT SHIFT. PT PASSING GAS AND LIQUID STOOL VIA OSTOMY. PT DRINKING AND VOIDING WELL. ABD DRESSING C/D/I.
--- NOTE | 2021-08-01 13:29 | NUR ---
Pt. is awake in bed, and welcomes my visit. Pt. is progressing in his PT, and is looking forward to discharge possibly tomorrow. Pt. is a bit unsettled about going home and being on his own. Listen empathetically. Pt. displays evidence of seeking personal spiritual renewal. Facilitate a life review. Pt. verbalized his need for confession. Gooding confession. Provided Inspirational teaching, and reinforced helpful attitudes and practices. Pt. verbalized gratitude and sought advice about churches. Encouraged pt. to pursue a islam-based recovery program, and gave him the proper contact info. Pt. put info in his phone. The pt. was quoting scripture, but this public health service officer did not see a Bible in Pts. room. Upon request Pt. was given a [employer] bible. Pt. verbalized gratitude for the spiritual care visit, and the spiritual care plan that we discussed. I will try to see pt. prior to discharge if possible.
--- NOTE | 2021-08-01 16:11 | NUR ---
SHIFT SUMMARY PT POD #11 FOR SIGMOID COLECTOMY WITH COLOSTOMY. PLAN IS FOR THE PT TO DISCHARGE TOMORROW HOME WITH HOME HEALTH. PT AMBULATES OFTEN WITH A SBA/FWW. EDUCATED PT TODAY ABOUT COLOSTOMY CARE. PT ABLE TO VERBALIZE DIRECTIONS BUT HAS ISSUES WITH SEEING HIS DEVICE TO PROVIDE CARE DUE TO HIS NYSTAGMUS. WILL CONTINUE TO WORK WITH THE PATIENT ON COLOSTOMY CARE AND PROVIDE SOLUTIONS. VSS. WILL REPORT TO CHIO ORTIZ.
--- NOTE | 2021-08-02 05:54 | NUR ---
CAMPAIGN MANAGEMENT SPECIALIST SUMMARY NO ACUTE CHANGES THIS SHIFT. PT AAOX4 AND PLEASANT BUT REMAINS ANXIOUS MOST OF THE TIME, REQUIRES CONSTANT REASSURANCE. HR SINUS TACH 100-110'S TONIGHT PER IMPORT/EXPORT ANALYST, MEDICATED WITH SCHEDULED IV LOPRESSOR PER EMAR. MEDICATED FOR PAIN X1 WITH TYLENOL PER PT REQUEST, PT STATES OTHER PAIN MEDS "WERE MAKING ME SWEAT". MEDICATED FOR ANXIETY X1 WITH IV DILAUDID 1 MG. PT HAS EMPTIED HIS COLOSTOMY X1 TONIGHT WITH MOSTLY VERBAL DIRECTION ONLY, EDUCATING PT ON IMPORTANCE OF DOING TASK HIMSELF SO THAT HE IS READY FOR DC. PT DID WELL. VSS, WILL CONTINUE TO MONITOR.
--- NOTE | 2021-08-02 10:44 | NUR ---
DISCHARGE SUMMARY PT ANXIOUS TO DISCHARGE TODAY. DISCHARGED HOME WITH HOME HEALTH AND TAKEN BY AMBULANCE. HOSPITAL OSTOMY SUPPLIES GIVEN TO PATIENT. WALKER AND SOAP INSPECTOR ALSO PROVIDED TO THE PATIENT. VALUABLES RETURNED TO THE PATIENT FROM SECURITY. PICC LINE REMOVED.
== END 2021-08-02 10:29 | disposition home health service (06) | DRG 853 ==
LOC: ER 17:50 → ICUW 20:29 → SURS 07-24 12:56
PROVIDERS: Emergency Medicine; Family Medicine; Internal Medicine; Internal Medicine Critical Care Medicine; Student in an Organized Health Care Education/Training Program; Surgery; ADMIT Surgery
PROC: 0D1N0Z4 Bypass Sigmoid Colon to Cutaneous, Open Approach (ICD-10-PCS; 2021-07-20)
PROC: 3E03329 Introduction of Other Anti-infective into Peripheral Vein, Percutaneous Approach (ICD-10-PCS; principal; 2021-07-20 21:30)
PROC: 0DBN0ZZ Excision of Sigmoid Colon, Open Approach (ICD-10-PCS; 2021-07-20 21:30)
PROC: 02HV33Z Insertion of Infusion Device into Superior Vena Cava, Percutaneous Approach (ICD-10-PCS; 2021-07-20 21:30)
PROC: 0BH17EZ Insertion of Endotracheal Airway into Trachea, Via Natural or Artificial Opening (ICD-10-PCS; 2021-07-21)
PROC: 5A1945Z Respiratory Ventilation, 24-96 Consecutive Hours (ICD-10-PCS; 2021-07-21)
DX: A41.9 Sepsis, unspecified organism (principal); K65.1 Peritoneal abscess; N17.0 Acute kidney failure with tubular necrosis; K65.0 Generalized (acute) peritonitis; E87.1 Hypo-osmolality and hyponatremia; E87.2 Acidosis; K57.20 Diverticulitis of large intestine with perforation and abscess without bleeding; J98.11 Atelectasis; Z20.822 Contact with and (suspected) exposure to COVID-19; F41.9 Anxiety disorder, unspecified; F79 Unspecified intellectual disabilities; R03.0 Elevated blood-pressure reading, without diagnosis of hypertension; E80.6 Other disorders of bilirubin metabolism; R74.01 Elevation of levels of liver transaminase levels; R65.20 Severe sepsis without septic shock; F31.9 Bipolar disorder, unspecified; F20.9 Schizophrenia, unspecified; J45.909 Unspecified asthma, uncomplicated; G47.00 Insomnia, unspecified; F17.210 Nicotine dependence, cigarettes, uncomplicated; F12.90 Cannabis use, unspecified, uncomplicated; Z72.89 Other problems related to lifestyle; D72.829 Elevated white blood cell count, unspecified; D75.839 Thrombocytosis, unspecified; Z88.8 Allergy status to other drugs, medicaments and biological substances; Z98.890 Other specified postprocedural states; Z79.899 Other long term (current) drug therapy; Z78.1 Physical restraint status
CPT/HCPCS: 0241U; 36415; 36569; 51702; 71045; 74177; 80048; 80053; 80069; 81001; 82330; 82550; 82553; 82803; 82947; 83605; 83735; 84100; 84478; 85025; 87040; 88307; 93005; 93010; 94003; 94640; 94664; 94667; 94668; 94760; 94762; 96365; 96375; 97110; 97116; 97162; 97166; 97530; 97535; 99285-25; A9270; C1751; C9113; J0330; J1100; J1170; J1200; J1450; J1650; J2060; J2185; J2270; J2405; J2543; J2704; J3010; J3411; J3475; J3480; J7050; J7060; J7120; Q9967

== ENCOUNTER 2021-08-03 13:30 | Inpatient (IN) | payer OTHER ==
[~2021-08-03] VITALS: Ht 188 cm; Wt 90.7 kg
[2021-08-03 14:45] LABS: BASOPHILS ABSOLUTE AUTO 0.05 K/mm3 (0.00-0.23); BASOPHILS PERCENT AUTO 0 % (0-2); EOSINOPHILS ABSOLUTE AUTO 0.04 K/mm3 (0.00-0.68); EOSINOPHILS PERCENT AUTO 0 % (0-6); Hematocrit 30.3 % (37.0-53.0); Hemoglobin 9.9 g/dL (13.5-17.5); IMMATURE GRAN ABSOLUTE AUTO 0.32 K/mm3 (0.00-0.10); IMMATURE GRAN PERCENT AUTO 2 % (0-1); LYMPHOCYTES PERCENT AUTO 15 % (21-46); MONOCYTES ABSOLUTE AUTO 1.14 K/mm3 (0.16-1.47); MONOCYTES PERCENT AUTO 7 % (4-13); Mean Corpuscular HGB 29.3 pg (26.0-34.0); Mean Corpuscular HGB Conc 32.7 g/dL (31.5-36.5); Mean Corpuscular Volume 90 fL (80-100); Mean Platelet Volume 10.1 fL (9.1-12.4); NEUTROPHILS ABSOLUTE AUTO 11.88 K/mm3 (1.96-9.15); NEUTROPHILS PERCENT AUTO 75 % (41-73); Platelet Count 677 K/mm3 (150-400); RDW Coefficient Variation 14.7 % (11.7-14.2); RDW Standard Deviation 47.7 fL (35.1-46.3); Red Blood Cell Count 3.38 M/mm3 (4.30-5.90); White Blood Cell Count 15.83 K/mm3 (4.00-11.30)
[2021-08-03 14:57] LABS: Alanine Aminotransfer (ALT/SGP 53 U/L (12-78); Albumin, Blood 1.5 g/dL (3.4-5.0); Albumin/Globulin Ratio 0.3 (0.8-1.8); Alk Phos 265 U/L (50-136); Anion Gap 9 mmol/L (6-16); Aspartate Aminotrans (AST/SGOT 38 U/L (12-37); Bilirubin, Total 0.8 mg/dL (0.1-1.0); Blood Urea Nitrogen 13 mg/dL (8-24); CO2, Blood 25 mmol/L (21-32); Calcium, Blood 8.1 mg/dL (8.5-10.1); Chloride, Blood 102 mmol/L (98-108); Creatinine, Blood 0.45 mg/dL (0.60-1.20); Globulin, Blood 4.4 g/dL (2.2-4.0); Glomerular Filtration Rate >60 (60-); Glucose, Blood 95 mg/dL (70-99); Potassium, Blood 3.3 mmol/L (3.5-5.5); Sodium, Blood 136 mmol/L (136-145); Total Protein, Blood 5.9 g/dL (6.4-8.2)
[2021-08-03 16:43] LABS: Source, Urine Clean Catch
[2021-08-03 16:47] LABS: Bilirubin, Urine Neg (Neg); Blood, Urine Neg (Neg); Glucose Qualitative, Urine Neg (Neg); Ketones, Urine Neg (Neg); Leukocyte Esterase, Urine 1+ (Neg); Nitrite, Urine Neg (Neg); Protein, Urine 2+ (Neg); Urobilinogen, Urine 1+ (Normal)
[2021-08-03 16:53] LABS: Appearance, Urine Hazy (Clear); Color, Urine Yellow (P-Yellow)
[2021-08-03 16:54] LABS: Bacteria Rare /hpf; Mucus Light (0-Heavy); Red Blood Cells, Urine 0-2 /hpf (0-2); Squamous Epithelial Cells Rare /hpf (Few)
[2021-08-04 05:13] LABS: BASOPHILS ABSOLUTE AUTO 0.05 K/mm3 (0.00-0.23); BASOPHILS PERCENT AUTO 1 % (0-2); EOSINOPHILS ABSOLUTE AUTO 0.09 K/mm3 (0.00-0.68); EOSINOPHILS PERCENT AUTO 1 % (0-6); Hematocrit 25.4 % (37.0-53.0); Hemoglobin 8.3 g/dL (13.5-17.5); IMMATURE GRAN PERCENT AUTO 2 % (0-1); LYMPHOCYTES ABSOLUTE AUTO 1.96 K/mm3 (0.84-5.20); LYMPHOCYTES PERCENT AUTO 18 % (21-46); MONOCYTES ABSOLUTE AUTO 0.94 K/mm3 (0.16-1.47); MONOCYTES PERCENT AUTO 9 % (4-13); Mean Corpuscular HGB 29.1 pg (26.0-34.0); Mean Corpuscular HGB Conc 32.7 g/dL (31.5-36.5); Mean Corpuscular Volume 89 fL (80-100); Mean Platelet Volume 9.5 fL (9.1-12.4); NEUTROPHILS ABSOLUTE AUTO 7.42 K/mm3 (1.96-9.15); NEUTROPHILS PERCENT AUTO 70 % (41-73); Platelet Count 589 K/mm3 (150-400); RDW Coefficient Variation 14.9 % (11.7-14.2); RDW Standard Deviation 48.3 fL (35.1-46.3); Red Blood Cell Count 2.85 M/mm3 (4.30-5.90); White Blood Cell Count 10.66 K/mm3 (4.00-11.30)
[2021-08-04 05:51] LABS: Alanine Aminotransfer (ALT/SGP 37 U/L (12-78); Albumin, Blood 1.5 g/dL (3.4-5.0); Albumin/Globulin Ratio 0.4 (0.8-1.8); Alk Phos 204 U/L (50-136); Anion Gap 8 mmol/L (6-16); Aspartate Aminotrans (AST/SGOT 25 U/L (12-37); Bilirubin, Total 0.8 mg/dL (0.1-1.0); Blood Urea Nitrogen 10 mg/dL (8-24); Bun/Creatinine Ratio 21.7 (12.0-20.0); CO2, Blood 26 mmol/L (21-32); Calcium, Blood 7.6 mg/dL (8.5-10.1); Chloride, Blood 104 mmol/L (98-108); Creatinine, Blood 0.46 mg/dL (0.60-1.20); Globulin, Blood 3.5 g/dL (2.2-4.0); Glomerular Filtration Rate >60 (60-); Glucose, Blood 87 mg/dL (70-99); Potassium, Blood 2.9 mmol/L (3.5-5.5); Sodium, Blood 138 mmol/L (136-145)
--- NOTE | 2021-08-04 07:32 | NUR ---
SHIFT SUMMARY PT WAS A NEW ADMIT DURING THE NIGHT, ADMITTED FOR SEPSIS. HE IS 35 Y/O MALE, WITH A HX OF DEVELOPMENTAL DELAY. VERY LABILE MOOD WITH PERIODS OF TEARFULNESS AND ANXIETY. PT WAS RECENTLY DC'D FROM HOSPITAL THE DAY BEFORE HIS ADMISSION WITH A NEW COLOSTOMY R/T A BOWEL PERFORATION. PT WAS TACHY THROUGH THE NIGHT IN THE 100-110S PER FLATWORK FEEDER, THOUGH TECH STATED THAT WHEN THE RATE SLOWED DOWN FOR A SHORT TIME IT APPEARED TO BE A "JUNCTIONAL ESCAPE" RHYTHM. RESPIRATORY RATE ELEVATED INTO THE 30S OCCASIONALLY. ALL OTHER VITALS STABLE. ON ADMISSION, PT HAD SEVERE NYSTAGMUS AND WAS COMPAINING OF BLURRY VISION, DIZZINESS AND EAR DISCOMFORT. HOSPITALIST DR CHAIDEZ WAS NOTIFIED, AND A HEAD CT ORDERED FOR THIS AM. NO OTHER ACUTE CHANGES IN PT CONDITION NOTED SINCE ADMISSION. REPORT GIVEN TO ONCOMING RN.
[2021-08-04 16:00] LABS: BASOPHILS ABSOLUTE AUTO 0.04 K/mm3 (0.00-0.23); BASOPHILS PERCENT AUTO 0 % (0-2); EOSINOPHILS ABSOLUTE AUTO 0.11 K/mm3 (0.00-0.68); EOSINOPHILS PERCENT AUTO 1 % (0-6); Hematocrit 26.6 % (37.0-53.0); Hemoglobin 8.7 g/dL (13.5-17.5); IMMATURE GRAN ABSOLUTE AUTO 0.17 K/mm3 (0.00-0.10); IMMATURE GRAN PERCENT AUTO 2 % (0-1); LYMPHOCYTES PERCENT AUTO 19 % (21-46); MONOCYTES ABSOLUTE AUTO 1.02 K/mm3 (0.16-1.47); MONOCYTES PERCENT AUTO 9 % (4-13); Mean Corpuscular HGB 28.9 pg (26.0-34.0); Mean Corpuscular HGB Conc 32.7 g/dL (31.5-36.5); Mean Corpuscular Volume 88 fL (80-100); Mean Platelet Volume 9.2 fL (9.1-12.4); NEUTROPHILS ABSOLUTE AUTO 7.47 K/mm3 (1.96-9.15); NEUTROPHILS PERCENT AUTO 69 % (41-73); Platelet Count 611 K/mm3 (150-400); RDW Coefficient Variation 14.6 % (11.7-14.2); RDW Standard Deviation 47.1 fL (35.1-46.3); Red Blood Cell Count 3.01 M/mm3 (4.30-5.90); White Blood Cell Count 10.81 K/mm3 (4.00-11.30)
--- NOTE | 2021-08-04 17:29 | NUR ---
SHIFT SUMMARY PT A&O X4 AND IN PLEASENT MOOD. PT DOES APPEAR VERY ANXIOUS @ BASELINE. PT C/O GETTING TOLD DIFFERENT DIRECTIONS BY DIFFERENT DR'S AND DOES NOT HAVE FINANCIAL MEANS @ THIS TIME. STEADY GAIT W/ AMBULATION. OSTOMY BAG DRAINING WELL. PAIN MEDICATED PER EMAR. VSS. CALL LIGHT W/IN REACH.
[2021-08-05 07:03] LABS: BASOPHILS ABSOLUTE AUTO 0.03 K/mm3 (0.00-0.23); BASOPHILS PERCENT AUTO 0 % (0-2); EOSINOPHILS PERCENT AUTO 1 % (0-6); Hematocrit 28.7 % (37.0-53.0); Hemoglobin 9.2 g/dL (13.5-17.5); IMMATURE GRAN ABSOLUTE AUTO 0.15 K/mm3 (0.00-0.10); IMMATURE GRAN PERCENT AUTO 1 % (0-1); LYMPHOCYTES ABSOLUTE AUTO 2.03 K/mm3 (0.84-5.20); LYMPHOCYTES PERCENT AUTO 18 % (21-46); MONOCYTES ABSOLUTE AUTO 1.08 K/mm3 (0.16-1.47); MONOCYTES PERCENT AUTO 10 % (4-13); Mean Corpuscular HGB 28.5 pg (26.0-34.0); Mean Corpuscular HGB Conc 32.1 g/dL (31.5-36.5); Mean Corpuscular Volume 89 fL (80-100); Mean Platelet Volume 9.4 fL (9.1-12.4); NEUTROPHILS ABSOLUTE AUTO 7.65 K/mm3 (1.96-9.15); NEUTROPHILS PERCENT AUTO 69 % (41-73); Platelet Count 625 K/mm3 (150-400); RDW Coefficient Variation 14.7 % (11.7-14.2); RDW Standard Deviation 47.9 fL (35.1-46.3); Red Blood Cell Count 3.23 M/mm3 (4.30-5.90); White Blood Cell Count 11.04 K/mm3 (4.00-11.30)
[2021-08-05 07:12] LABS: Alanine Aminotransfer (ALT/SGP 36 U/L (12-78); Albumin, Blood 1.6 g/dL (3.4-5.0); Albumin/Globulin Ratio 0.4 (0.8-1.8); Alk Phos 206 U/L (50-136); Anion Gap 8 mmol/L (6-16); Aspartate Aminotrans (AST/SGOT 29 U/L (12-37); Bilirubin, Total 0.7 mg/dL (0.1-1.0); Blood Urea Nitrogen 5 mg/dL (8-24); Bun/Creatinine Ratio 10.9 (12.0-20.0); CO2, Blood 29 mmol/L (21-32); Calcium, Blood 7.8 mg/dL (8.5-10.1); Chloride, Blood 98 mmol/L (98-108); Creatinine, Blood 0.46 mg/dL (0.60-1.20); Globulin, Blood 3.9 g/dL (2.2-4.0); Glomerular Filtration Rate >60 (60-); Glucose, Blood 99 mg/dL (70-99); Potassium, Blood 3.2 mmol/L (3.5-5.5); Sodium, Blood 135 mmol/L (136-145); Total Protein, Blood 5.5 g/dL (6.4-8.2)
--- NOTE | 2021-08-05 07:47 | NUR ---
SHIFT SUMMARY PT IS A 35 Y/O MALE, ADMITTED FOR SEPSIS. A&O X 3 WITH DEVELOPMENTAL DELAY. LABILE EMOTIONS, VERY ANXIOUS AND TEAFUL AT TIMES. PT RECENTLY HAD A COLOSTOMY PLACED IN L ABD. PT REPORT SUDDEN SEVERE R SIDE AND FLANK PAIN DURING THE NIGHT, STATING THAT "IT FEELS LIKE MY KIDNEY IS GOING TO BURST!" PT WAS MEDICATED WITH TYLENOL, AMBULATED AROUND THE FLOOR, AND REPOSITIONED IN BED, WIHT RELIEF TO PAIN NOTED. NO C/O NAUSEA OR SOB. VITAL SIGNS STABLE. NO OTHER ACUTE CHANGES IN PT CONDITION NOTED DURING THE NIGHT. WILL CONTINUE TO MONITOR AND TREAT PER EMAR UNTIL HAND OFF TO DAY SHIFT RN.
[2021-08-05] MEDS ORDERED: Acetaminophen325 M1 PO (14:23)
[2021-08-05] MEDS ORDERED: CODACE30 PO (14:24)
[2021-08-05] MEDS ORDERED: MECL25 PO (14:25)
--- NOTE | 2021-08-05 15:04 | NUR ---
PT DISCHARGED BACK HOME WITH WHEELCHAIR TRANSPORT TO HOME WITH STOP AT PHARMACY TO MANAGER WE[facility] MANAGEMENT RX AT [facility]. IV DC'D LAC AND RH. CHANGED COLOSTOMY BAG, NEW SEAL AND BAG, SKIN INTACT UNDER APPLIEANC. SKIN PREP APPLIED. DIAINING BROWN TO OLIVE LOOSE STOOL. PT TOLERATED A GENERAL BREAKFAST AND FLUIDS. PT AMBULATING STEADY ON FEET WITH WALKER AND SBA. APPT SET FOR 08/09 [facility] FOLLOW-UP. NEW RX FOR TYLENOL WITH CODEINE WHICH WAS HELPFUL FOR PAIN RELEIF WHEN TAKEN A FEW HOURS AGO. SENT HOME WITH BELONGINGS INCLUDINS PHONE AND ROLLOFF DRIVER, OSTOMY SUPPLYS.
--- NOTE | 2021-08-05 15:59 | NUR ---
Per Dr. Marialuisa Ovalle discharge appropriate. Patient does not oppose discharge. Patient is discharged home: [address] [place]. Patient discharged with resumption of home health. [facility] notified of discharge. Will resume services within 48 hours. Patient discharged with ostomy supplies from [facility]. [facility] will also have supplies. Patient has a [facility] Pecan Gatherer and she was notified of discharge plan. (Chayito Cruz [phone]). Date of discharge: 08/02/2021 Date of admission: 07/20/2021 Transportation provided by: [facility]/wheelchair transport DME Ordered: 2WW delivered to room on 07/31/21 Follow-ups needed: [facility] ADE will contact patient to schedule hospital follow-up visit. Explained importance of follow-up appointment. Provider/PCP: Dr. Keshav Garcia When: scheduled for 08/09/21 Specialty: Follow-up with ostomy When: N/A Confirmed numbers: Patient [phone] Comment: Patient to contact PCP with any questions regarding medication management, social service needs, and if condition worsens go to Urgent Care/ER. No barriers to discharge on this date. Patient's [facility] Pecan Gatherer is Chayito Cruz ([phone]). Patient has received teaching and education on ostomy care. [facility] will transport patient to [facility] to citrus picker his medication. Sent referral to [facility]. Coordinated transportation for 08/09/21 follow-up appointment.
== END 2021-08-05 14:58 | disposition home health service (06) | DRG 871 ==
LOC: ER 13:30 → MEDS 19:48 → ENPENDDIS 08-05 13:30 → MEDS 08-05 14:58
PROVIDERS: Emergency Medicine; Family Medicine; Internal Medicine; ADMIT Internal Medicine
DX: A41.9 Sepsis, unspecified organism (principal); J18.9 Pneumonia, unspecified organism; L02.211 Cutaneous abscess of abdominal wall; F31.9 Bipolar disorder, unspecified; E87.6 Hypokalemia; F79 Unspecified intellectual disabilities; F20.9 Schizophrenia, unspecified; J45.909 Unspecified asthma, uncomplicated; G47.00 Insomnia, unspecified; Z87.891 Personal history of nicotine dependence; Z28.21 Immunization not carried out because of patient refusal; Z87.19 Personal history of other diseases of the digestive system; Z93.3 Colostomy status; Z88.8 Allergy status to other drugs, medicaments and biological substances; Z79.899 Other long term (current) drug therapy
CPT/HCPCS: 36415; 70450; 71045; 74177; 80053; 81001; 83605; 83690; 83880; 84145; 85025; 87086; 93005; 93010; 93306; 94640; 94760; 96365; 96366; 96368; 97116; 97162; 97530; 99285-25; A9270; J1650; J1940; J2060; J2405; J2543; J3010; J3480; J7030; P9046; Q9967

== ENCOUNTER 2021-08-05 23:32 | Inpatient (IN) | payer OTHER ==
[~2021-08-05] VITALS: Ht 190.5 cm; Wt 84.6 kg
[~2021-08-05 23:32] MED LIST changes: +Acetaminophen325 M1 PO; +CODACE30 PO; +MECL25 PO
[2021-08-06 00:01] LABS: BASOPHILS ABSOLUTE AUTO 0.06 K/mm3 (0.00-0.23); BASOPHILS PERCENT AUTO 0 % (0-2); EOSINOPHILS ABSOLUTE AUTO 0.02 K/mm3 (0.00-0.68); EOSINOPHILS PERCENT AUTO 0 % (0-6); Hematocrit 28.4 % (37.0-53.0); Hemoglobin 9.4 g/dL (13.5-17.5); IMMATURE GRAN ABSOLUTE AUTO 0.13 K/mm3 (0.00-0.10); IMMATURE GRAN PERCENT AUTO 1 % (0-1); LYMPHOCYTES ABSOLUTE AUTO 2.73 K/mm3 (0.84-5.20); LYMPHOCYTES PERCENT AUTO 17 % (21-46); MONOCYTES ABSOLUTE AUTO 1.58 K/mm3 (0.16-1.47); MONOCYTES PERCENT AUTO 10 % (4-13); Mean Corpuscular HGB 28.7 pg (26.0-34.0); Mean Corpuscular HGB Conc 33.1 g/dL (31.5-36.5); Mean Corpuscular Volume 87 fL (80-100); Mean Platelet Volume 9.5 fL (9.1-12.4); NEUTROPHILS ABSOLUTE AUTO 11.59 K/mm3 (1.96-9.15); NEUTROPHILS PERCENT AUTO 72 % (41-73); Platelet Count 657 K/mm3 (150-400); RDW Coefficient Variation 14.6 % (11.7-14.2); RDW Standard Deviation 46.6 fL (35.1-46.3); Red Blood Cell Count 3.27 M/mm3 (4.30-5.90); White Blood Cell Count 16.11 K/mm3 (4.00-11.30)
[2021-08-06 00:13] LABS: Alanine Aminotransfer (ALT/SGP 39 U/L (12-78); Albumin, Blood 1.8 g/dL (3.4-5.0); Albumin/Globulin Ratio 0.4 (0.8-1.8); Alk Phos 210 U/L (50-136); Anion Gap 8 mmol/L (6-16); Aspartate Aminotrans (AST/SGOT 24 U/L (12-37); Bilirubin, Total 0.7 mg/dL (0.1-1.0); Blood Urea Nitrogen 8 mg/dL (8-24); Bun/Creatinine Ratio 16.5 (12.0-20.0); CO2, Blood 28 mmol/L (21-32); Calcium, Blood 7.9 mg/dL (8.5-10.1); Chloride, Blood 98 mmol/L (98-108); Creatinine, Blood 0.49 mg/dL (0.60-1.20); Globulin, Blood 4.1 g/dL (2.2-4.0); Glomerular Filtration Rate >60 (60-); Glucose, Blood 100 mg/dL (70-99); Potassium, Blood 3.1 mmol/L (3.5-5.5); Sodium, Blood 134 mmol/L (136-145); Total Protein, Blood 5.9 g/dL (6.4-8.2)
[2021-08-06 00:44] LABS: Source, Urine Clean Catch
[2021-08-06 00:49] LABS: Bilirubin, Urine Neg (Neg); Blood, Urine Neg (Neg); Glucose Qualitative, Urine Neg (Neg); Ketones, Urine Neg (Neg); Leukocyte Esterase, Urine Neg (Neg); Nitrite, Urine Neg (Neg); Protein, Urine Neg (Neg); Specific Gravity, Urine 1.005 (1.003-1.022); Urobilinogen, Urine NORM (Normal)
[2021-08-06 00:58] LABS: Appearance, Urine Clear (Clear); Color, Urine Yellow (P-Yellow)
[2021-08-06 04:47] LABS: BASOPHILS ABSOLUTE AUTO 0.02 K/mm3 (0.00-0.23); BASOPHILS PERCENT AUTO 0 % (0-2); EOSINOPHILS ABSOLUTE AUTO 0.02 K/mm3 (0.00-0.68); EOSINOPHILS PERCENT AUTO 0 % (0-6); Hematocrit 25.6 % (37.0-53.0); Hemoglobin 8.4 g/dL (13.5-17.5); IMMATURE GRAN ABSOLUTE AUTO 0.13 K/mm3 (0.00-0.10); IMMATURE GRAN PERCENT AUTO 1 % (0-1); LYMPHOCYTES ABSOLUTE AUTO 2.52 K/mm3 (0.84-5.20); LYMPHOCYTES PERCENT AUTO 20 % (21-46); MONOCYTES ABSOLUTE AUTO 1.23 K/mm3 (0.16-1.47); MONOCYTES PERCENT AUTO 10 % (4-13); Mean Corpuscular HGB 28.6 pg (26.0-34.0); Mean Corpuscular HGB Conc 32.8 g/dL (31.5-36.5); Mean Corpuscular Volume 87 fL (80-100); Mean Platelet Volume 9.2 fL (9.1-12.4); NEUTROPHILS ABSOLUTE AUTO 8.58 K/mm3 (1.96-9.15); NEUTROPHILS PERCENT AUTO 69 % (41-73); Platelet Count 608 K/mm3 (150-400); RDW Coefficient Variation 14.6 % (11.7-14.2); RDW Standard Deviation 47.1 fL (35.1-46.3); Red Blood Cell Count 2.94 M/mm3 (4.30-5.90)
[2021-08-06 05:02] LABS: Anion Gap 8 mmol/L (6-16); Blood Urea Nitrogen 5 mg/dL (8-24); Bun/Creatinine Ratio 10.4 (12.0-20.0); CO2, Blood 28 mmol/L (21-32); Calcium, Blood 7.6 mg/dL (8.5-10.1); Chloride, Blood 100 mmol/L (98-108); Creatinine, Blood 0.48 mg/dL (0.60-1.20); Glomerular Filtration Rate >60 (60-); Glucose, Blood 97 mg/dL (70-99); Potassium, Blood 2.8 mmol/L (3.5-5.5); Sodium, Blood 136 mmol/L (136-145)
--- NOTE | 2021-08-06 05:12 | NUR ---
ADMISSION: THE NURSE RECEIVED REPORT FROM ED RN ARAMIS. THE PATIENT ARRIVED ON THE FLOOR AND D/T WEAKNESS AND ABDOMINAL PAIN HAD TO BE SLID OVER TO THE BED. THE PT IS A/OX4, BUT WAS NOT THE BEST HISTORIAN FOR RECENTLY TAKEN MEDICATIONS. PER TELE HE WAS IN A SINUS ARRHYTHMIA: JUNCTIONAL RHYTHM IN THE 70s SWITCHING TO SINUS TACH IN THE 100s. THE PT HAS A NEWLY PLACED COLOSTOMY IN HIS LLQ AND HIS PAIN WAS IN PROXIMITY TO HIS OSTOMY. PER ED NURSE AND PATIENT THE BAG WAS EMPTIED IN THE ED. BOWEL TONES WERE PRESENT, BUT HYPOACTIVE. THE PT HAS NO C/O OF N/V OR PAIN RADIATING ELSEWHERE. THE PT DID C/O OF SWELLING IN HIS LE. HE DOES HAVE 2+ PITTING EDEMA IN BLE. CMS IS INTACT AND PEDAL PULSES ARE PALPABLE. PT WAS NODDING OFF DURING ADMISSION AND NO OTHER ACUTE ISSUES TO REPORT. HIS CALL LIGHT IS WITHIN REACH AND WE'LL CONTINUE TO MONITOR.
--- NOTE | 2021-08-06 10:03 | NUR ---
Pt. requested a Spiritual CAre visit. Pt. was awake and in bed. Pt. welcomes my visit. Pt. is unsettled about his recent discharge and re-admission. Pt. displays evidence of frustration and guilt over having to be readmitted. Through theraputic listening and pastoral counselor nurses' association pt. displays evidence of contained emotions. This fuel yard operator has spent time with pt. recently, so rapport was re-established. Pt. verbalizes expectations that he will be discharged now to [facility]. Pt. verbalized desire to have me pray for his health, and his patience through a long recovery. Prayed with Pt. Pt. displays evidence of lower stress, and verbalizes gratitude for the spiritual care visit.
--- NOTE | 2021-08-06 16:45 | NUR ---
PT AOX4 AND COOPERATIVE OF CARE. PT STARTED SHIFT VERY ANXIOUS, BUT HAS SEEMED TO RELAX THE DAY HAS PROGRESSED. COLOSTOMY BAG IS SEALED AND LOOKS HEALTHY AT THIS TIME. PT IS HAVING SOME MILD ABD PAIN AND HAS BEEN TREATED PER EMAR. PT'S ALSO HAS LE SWELLING AND DR HALL MADE CHANGES TO EMAR TO ADDRESS THIS ISSUE ALONG WITH YUE BENDER. NO DISTRESS NOTED AT THIS TIME WILL CONTINUE TO MONITOR.
[2021-08-07 04:51] LABS: BASOPHILS ABSOLUTE AUTO 0.04 K/mm3 (0.00-0.23); BASOPHILS PERCENT AUTO 0 % (0-2); EOSINOPHILS ABSOLUTE AUTO 0.05 K/mm3 (0.00-0.68); EOSINOPHILS PERCENT AUTO 0 % (0-6); Hematocrit 29.2 % (37.0-53.0); Hemoglobin 9.2 g/dL (13.5-17.5); IMMATURE GRAN ABSOLUTE AUTO 0.16 K/mm3 (0.00-0.10); IMMATURE GRAN PERCENT AUTO 1 % (0-1); LYMPHOCYTES ABSOLUTE AUTO 2.22 K/mm3 (0.84-5.20); LYMPHOCYTES PERCENT AUTO 19 % (21-46); MONOCYTES ABSOLUTE AUTO 1.03 K/mm3 (0.16-1.47); MONOCYTES PERCENT AUTO 9 % (4-13); Mean Corpuscular HGB 28.3 pg (26.0-34.0); Mean Corpuscular HGB Conc 31.5 g/dL (31.5-36.5); Mean Corpuscular Volume 90 fL (80-100); NEUTROPHILS ABSOLUTE AUTO 8.25 K/mm3 (1.96-9.15); NEUTROPHILS PERCENT AUTO 70 % (41-73); Platelet Count 697 K/mm3 (150-400); RDW Coefficient Variation 14.8 % (11.7-14.2); RDW Standard Deviation 48.8 fL (35.1-46.3); Red Blood Cell Count 3.25 M/mm3 (4.30-5.90); White Blood Cell Count 11.75 K/mm3 (4.00-11.30)
[2021-08-07 05:12] LABS: Alanine Aminotransfer (ALT/SGP 35 U/L (12-78); Albumin, Blood 1.7 g/dL (3.4-5.0); Albumin/Globulin Ratio 0.4 (0.8-1.8); Alk Phos 192 U/L (50-136); Anion Gap 5 mmol/L (6-16); Aspartate Aminotrans (AST/SGOT 32 U/L (12-37); Bilirubin, Total 0.6 mg/dL (0.1-1.0); Blood Urea Nitrogen 4 mg/dL (8-24); Bun/Creatinine Ratio 7.8 (12.0-20.0); CO2, Blood 32 mmol/L (21-32); Calcium, Blood 8.2 mg/dL (8.5-10.1); Chloride, Blood 102 mmol/L (98-108); Creatinine, Blood 0.51 mg/dL (0.60-1.20); Globulin, Blood 4.1 g/dL (2.2-4.0); Glomerular Filtration Rate >60 (60-); Glucose, Blood 94 mg/dL (70-99); Potassium, Blood 3.3 mmol/L (3.5-5.5); Sodium, Blood 139 mmol/L (136-145); Total Protein, Blood 5.8 g/dL (6.4-8.2)
--- NOTE | 2021-08-07 05:25 | NUR ---
SHIFT SUMMARY: PT HAS BEEN PLEASANT AND COOPERATIVE WITH CARE THIS NOC SHIFT. HE DOES HAVE C/O OF ABDOMINAL PAIN/PRESSURE AROUND HIS OSTOMY SITE. THE OSTOMY IS BUDDED AND OUTPUT IS SMALL. BL EDEMA SEEMS TO BE IMPROVING AND PT STATES LESS DISCOMFORT PER MIG TIG WELDER: SR/70 W/ A JUNCTIONAL RHYTHM AT TIMES. THE IV WAS PULLED UNINTENTIONALLY AND A NO IV NEEDED ORDER IS IN; MD AWARE. CALL LIGHT IS WITHIN REACH AND WE'LL CONTINUE TO MONITOR.
--- NOTE | 2021-08-07 12:12 | NUR ---
Pt. is in bed, and welcomes my visit. Pt. is alert and displays evidence of increased courage and resolve. Through theraputic listening provide a calming presence. Briefly explored sources of meaning and purpose. Pt. is genuinely in a positve frame of mind as he expects discharge to home later int he day. Reinforced helpful attitudes and practices. Prayed with Pt. Pt. verbalized his gratitude for spiritual care at the hospital.
--- NOTE | 2021-08-07 15:00 | NUR ---
DR. DOUGLAS IN TO SEE PT DR. DOUGLAS REDRESSED PT ABD MID LINE INCISION. DECISION MADE TO CANCEL PLANNED D/C, PLAN TO DRAIN ABD FLUID COLLECTION FOUND ON ABD CT. PLAN NPO @ 0000 PER ORDERS, PLAN TO PLACE IV ACCESS. PLANNED TRANSPORT CANCELED VIA CASE MANAGEMENT.
[2021-08-07 15:57] LABS: International Normalized Ratio 1.12; Prothrombin Time Results 11.7 Sec (9.7-11.5)
--- NOTE | 2021-08-07 18:21 | NUR ---
PT A&O X4 AND OVERALL IN PLEASENT MOOD T/O SHIFT. PT DID HAVE ANXIOUS EPPISODES T/O SHIFT. DR. HALL CONTACTED TO INQUIRE ADDITIONAL PRN MED, AWAITING RETURN CALL @ THIS TIME. PAIN MEDICATED PER EMAR, AND NON-PHARM WARMTH TO ABD. DRESSING C/D/I TO ABD MIDLINE, CHANGED THIS SHIFT BY DR. DOUGLAS. PLAN TO NPO @ 0000 FOR DRAIN PLACEMENT TOMORROW. VSS. TELE IN PLACE. CALL LIGHT W/IN REACH. PT STEADY GAIT W/ AMBULATION. COLOSTOMY DRAINING THICK LIQUID STOOL. PT C/O GAS PAIN AND BLOATING @ THIS TIME.
[2021-08-08 04:29] LABS: BASOPHILS ABSOLUTE AUTO 0.05 K/mm3 (0.00-0.23); BASOPHILS PERCENT AUTO 0 % (0-2); EOSINOPHILS ABSOLUTE AUTO 0.04 K/mm3 (0.00-0.68); EOSINOPHILS PERCENT AUTO 0 % (0-6); Hematocrit 27.6 % (37.0-53.0); IMMATURE GRAN ABSOLUTE AUTO 0.18 K/mm3 (0.00-0.10); IMMATURE GRAN PERCENT AUTO 1 % (0-1); LYMPHOCYTES ABSOLUTE AUTO 2.65 K/mm3 (0.84-5.20); LYMPHOCYTES PERCENT AUTO 20 % (21-46); MONOCYTES ABSOLUTE AUTO 1.28 K/mm3 (0.16-1.47); MONOCYTES PERCENT AUTO 10 % (4-13); Mean Corpuscular HGB 28.7 pg (26.0-34.0); Mean Corpuscular HGB Conc 32.6 g/dL (31.5-36.5); Mean Corpuscular Volume 88 fL (80-100); Mean Platelet Volume 9.2 fL (9.1-12.4); NEUTROPHILS ABSOLUTE AUTO 9.31 K/mm3 (1.96-9.15); NEUTROPHILS PERCENT AUTO 69 % (41-73); Platelet Count 652 K/mm3 (150-400); RDW Coefficient Variation 14.7 % (11.7-14.2); Red Blood Cell Count 3.14 M/mm3 (4.30-5.90); White Blood Cell Count 13.51 K/mm3 (4.00-11.30)
[2021-08-08 04:53] LABS: Alanine Aminotransfer (ALT/SGP 40 U/L (12-78); Albumin, Blood 1.9 g/dL (3.4-5.0); Albumin/Globulin Ratio 0.5 (0.8-1.8); Alk Phos 190 U/L (50-136); Anion Gap 5 mmol/L (6-16); Aspartate Aminotrans (AST/SGOT 31 U/L (12-37); Bilirubin, Total 0.6 mg/dL (0.1-1.0); Blood Urea Nitrogen 5 mg/dL (8-24); Bun/Creatinine Ratio 10.2 (12.0-20.0); CO2, Blood 28 mmol/L (21-32); Calcium, Blood 8.2 mg/dL (8.5-10.1); Chloride, Blood 101 mmol/L (98-108); Creatinine, Blood 0.49 mg/dL (0.60-1.20); Globulin, Blood 4.1 g/dL (2.2-4.0); Glomerular Filtration Rate >60 (60-); Glucose, Blood 93 mg/dL (70-99); Sodium, Blood 134 mmol/L (136-145)
--- NOTE | 2021-08-08 05:36 | NUR ---
SHIFT SUMMARY: THE PT HAS BEEN MORE ANXIOUS THIS SHIFT AT TIMES. HE IS SOMEWHAT REDIRECTABLE, BUT EXPLAINING SLOWLY AND NOT TOO MUCH INFORMATION AT ONCE WORKS BEST. HE HAS BEEN NPO SINCE MIDNIGHT AT WILL BE HAVING A PERCUTANEOUS DRAIN PLACED TODAY. THE PT STATED THAT HIS ABDOMINAL PAIN IS BETTER THROUGHOUT THIS SHIFT. PER TELE MONITOR: SR/79. HIS BLE EDEMA HAS IMPROVED. THE PT'S CALL LIGHT IS WITHIN REACH AND WE'LL CONTINUE TO MONITOR.
[2021-08-08 07:27] LABS: Influenza A, PCR NEGATIVE (NEGATIVE); Influenza B, PCR NEGATIVE (NEGATIVE); Resp Syncytial Virus, PCR NEGATIVE (NEGATIVE); SARS-Cov-2 (COVID-19) PCR, MMC NEGATIVE (NEGATIVE)
--- NOTE | 2021-08-08 09:43 | NUR ---
PT TO CT @ THIS TIME FOR DRAIN PLACEMENT. NPO MAINTAINED SINCE 0000.
--- NOTE | 2021-08-08 10:30 | NUR ---
PT RETURNED FROM DRAIN PLACEMENT @ THIS TIME VIA WC. PT A&O X4 AND IN PLEASENT MOOD. SELF TRANSFER TO BED.
--- NOTE | 2021-08-08 14:59 | NUR ---
Pt. is awake and welcomes my vivist. Pt. is distressed over the nurse not checking on him. This network systems administrator relayed message to a FLOOR SANDER. Prayed for Pt. Pt. verbalized gratitude for the spiritual care visit.
--- NOTE | 2021-08-08 17:43 | NUR ---
SHIFT SUMMARY PT A&O X4 AND IN PLEASENT MOOD T/O SHIFT, THOUGH DID APPEAR ANXIOUS @ TIMES. DRAIN PLACED THIS SHIFT, DRAINING WELL-300 ML OUTPUT. PT VERBALIZED PAIN IN ABD IS GETTING BETTER. PT VERBALIZED UNDERSTANDING OF HOW TO DRAIN TUBE, STATES HE THINKS HE WILL BE READY TO GO HOME TOMARROW. PT RESTED IN BED T/O MOST OF SHIFT. VSS. CALL LIGHT W/IN REACH. TELE IN PLACE, SR @ 70 PER PRINT LINE FEEDER.
--- NOTE | 2021-08-09 00:34 | NUR ---
AWAKE AT INTERVALS, QUITE ANXIOUS AT TIMES, REASSURANCE GIVEN, CALMED. ATTENTIVE. IV ANTIBIOTICS INFUSING ORDERED, MEDICATED FOR ABD DISCOMFORT AT THIS TIME. SEE MAR FOR DETAILS, CALL LIGHT IN REACH. DRESSING OF ABD INTACT.
--- NOTE | 2021-08-09 04:04 | NUR ---
CONTROL AND RECOVERY SPECIAL TACTICS SUMMARY AWAKE AT INTERVALS WITH ANXIETY RE HIS DX, TUBES AND POST HOSPITAL PLACEMENT ISSUES. RESSURANCE GIVEN. ENCOURAGED TO TALK WITH ETL DATABASE DEVELOPER, AFFECT CALMED. BY HS WAS SMILING. ABD DRESSING INTACT, SLIGHT AMT DRAINAGE. COLOSTOMY BAG EMPTIED, WOUND DRAIN WORKING, VSS. CALL LIGHT IN REACH. HAS BEEN RESTING QUIETLY WITH FEW INTERRUPTONS SINCE HS.
[2021-08-09 05:45] LABS: Hematocrit 29.9 % (37.0-53.0); Hemoglobin 9.8 g/dL (13.5-17.5); Mean Corpuscular HGB 28.7 pg (26.0-34.0); Mean Corpuscular HGB Conc 32.8 g/dL (31.5-36.5); Mean Corpuscular Volume 88 fL (80-100); Mean Platelet Volume 8.4 fL (9.1-12.4); Platelet Count 687 K/mm3 (150-400); RDW Coefficient Variation 14.7 % (11.7-14.2); RDW Standard Deviation 46.8 fL (35.1-46.3); Red Blood Cell Count 3.41 M/mm3 (4.30-5.90); White Blood Cell Count 9.17 K/mm3 (4.00-11.30)
[2021-08-09 06:14] LABS: Alanine Aminotransfer (ALT/SGP 37 U/L (12-78); Albumin/Globulin Ratio 0.5 (0.8-1.8); Alk Phos 183 U/L (50-136); Anion Gap 5 mmol/L (6-16); Aspartate Aminotrans (AST/SGOT 28 U/L (12-37); Bilirubin, Total 0.5 mg/dL (0.1-1.0); Blood Urea Nitrogen 4 mg/dL (8-24); Bun/Creatinine Ratio 8.2 (12.0-20.0); CO2, Blood 28 mmol/L (21-32); Calcium, Blood 8.4 mg/dL (8.5-10.1); Chloride, Blood 103 mmol/L (98-108); Creatinine, Blood 0.49 mg/dL (0.60-1.20); Globulin, Blood 4.4 g/dL (2.2-4.0); Glomerular Filtration Rate >60 (60-); Glucose, Blood 92 mg/dL (70-99); Potassium, Blood 3.7 mmol/L (3.5-5.5); Sodium, Blood 136 mmol/L (136-145); Total Protein, Blood 6.4 g/dL (6.4-8.2)
[2021-08-09 06:48] LABS: BAND PERCENT MAN 1 % (0-8); BASOPHILS PERCENT MAN 0 % (0-2); EOSINOPHILS PERCENT MAN 0 % (0-6); LYMPHOCYTES PERCENT MAN 36 % (21-46); MONOCYTES ABSOLUTE MAN 0.55 K/mm3 (0.16-1.47); MONOCYTES PERCENT MAN 6 % (4-13); NEUTROPHILS ABSOLUTE MAN 5.31 K/mm3 (1.96-9.15); SEG NEUTROPHILS PERCENT MAN 57 % (41-73); TOTAL CELLS COUNTED 100
--- NOTE | 2021-08-09 15:04 | NUR ---
PATIENT A AND O 4X. PATIENT CONTINUED TO BE ANXIOUS/PARTICULAR ABOUT ALL CARES. POSSIBLY BASELINE FOR PATIENT DUE TO TIMMY DELAY. POUCH CHANGED WITH LIQUID STOOL WAS BROWN AND LIQUID. STOMA APPEARED WNL. SURGICAL DRAIN ONLY PUT OUT MORE OR LESS 500ML OF SMILLAR DRAINAGE OSTOMY. NURSING WAITING ON SURGERY TO DO A FULL INTIAL DRESSING CHANGE TO ASSESS PATIENT FULLY. PATIENT AMBULATED WELL WITH PT/OT.
[2021-08-10 05:36] LABS: BASOPHILS ABSOLUTE AUTO 0.08 K/mm3 (0.00-0.23); BASOPHILS PERCENT AUTO 1 % (0-2); EOSINOPHILS ABSOLUTE AUTO 0.08 K/mm3 (0.00-0.68); EOSINOPHILS PERCENT AUTO 1 % (0-6); Hemoglobin 10.2 g/dL (13.5-17.5); IMMATURE GRAN ABSOLUTE AUTO 0.23 K/mm3 (0.00-0.10); IMMATURE GRAN PERCENT AUTO 2 % (0-1); LYMPHOCYTES ABSOLUTE AUTO 2.56 K/mm3 (0.84-5.20); LYMPHOCYTES PERCENT AUTO 27 % (21-46); MONOCYTES PERCENT AUTO 9 % (4-13); Mean Corpuscular HGB 28.4 pg (26.0-34.0); Mean Corpuscular HGB Conc 31.9 g/dL (31.5-36.5); Mean Corpuscular Volume 89 fL (80-100); Mean Platelet Volume 8.6 fL (9.1-12.4); NEUTROPHILS PERCENT AUTO 60 % (41-73); Platelet Count 724 K/mm3 (150-400); RDW Coefficient Variation 14.6 % (11.7-14.2); RDW Standard Deviation 47.5 fL (35.1-46.3); Red Blood Cell Count 3.59 M/mm3 (4.30-5.90); White Blood Cell Count 9.65 K/mm3 (4.00-11.30)
--- NOTE | 2021-08-10 05:52 | NUR ---
Alert and oriented x's 4, very anxious about all care. Encouragement and reassurance provided. Patient states hes trying to be more calm. Medicated due to c/o abdomial pain, effective relief. Bowel sounds present. Midline dressing intact to abdomen. Colostomy drained about 100ml of brown liquid, passing flatus, bag rinsed and eptied. Colostomy bag intact, stoma pink. No drainage from percutaneous drain. Safety maintained, call quijano in reach.
[2021-08-10 06:08] LABS: Alanine Aminotransfer (ALT/SGP 46 U/L (12-78); Albumin, Blood 2.1 g/dL (3.4-5.0); Albumin/Globulin Ratio 0.5 (0.8-1.8); Alk Phos 183 U/L (50-136); Anion Gap 6 mmol/L (6-16); Aspartate Aminotrans (AST/SGOT 35 U/L (12-37); Bilirubin, Total 0.5 mg/dL (0.1-1.0); Blood Urea Nitrogen 7 mg/dL (8-24); Bun/Creatinine Ratio 14.7 (12.0-20.0); CO2, Blood 27 mmol/L (21-32); Calcium, Blood 8.9 mg/dL (8.5-10.1); Chloride, Blood 104 mmol/L (98-108); Creatinine, Blood 0.48 mg/dL (0.60-1.20); Globulin, Blood 4.4 g/dL (2.2-4.0); Glomerular Filtration Rate >60 (60-); Glucose, Blood 90 mg/dL (70-99); Magnesium, Blood 2.1 mg/dL (1.6-2.4); Phosphorus, Blood 4.4 mg/dL (2.5-4.9); Potassium, Blood 4.1 mmol/L (3.5-5.5); Sodium, Blood 137 mmol/L (136-145); Total Protein, Blood 6.5 g/dL (6.4-8.2)
--- NOTE | 2021-08-10 12:50 | NUR ---
PATIENT CONTINUES TO BE ANXIOUS A AND O 4X. PATIENT HAD DRESSING TO OSTOMY AND MIDLINE CHANGED SITE IS WNL. PATIENT CAREGIVER JEREMY TAUGHT HOW TO CHANGE AND MANAGE OSTOMY AND MIDLINE INCISION. WELL DRAIN. DRAIN HAD STINKY PURLENT DRAINAGE. 50ML. ABD SOFT AND DRAIN SITE WNL.
--- NOTE | 2021-08-10 13:03 | NUR ---
DR. JUAN CARLOS WINSTON NOTIFIED OF UNCONTROLLED PAIN IN ABD. PATIENT CONTINUES TO HAVE ANXIETY. CAN WE MODIFY PAIN MEDICATIONS OR ADD NEW PAIN MEDICATION TO HELP MANAGE PATIENT'S PAIN BETTER? PROVIDER STATED HE WOULD LOOK AT CHART AND PLACE ORDERS.
--- NOTE | 2021-08-11 05:46 | NUR ---
ALERT AND ORINETD X'S 4. APPLEARED MORE CALM AND MADE POSITIVE COMMENTS REGARDING CURRENT SITAUATION. AMBULATED THROUGH GRIFFIN WITH WALKER WITH STAND BY ASSIST. MEDICATED FOR PAIN MANAGEMNET DUE TO ABDOMINAL PAIN, EFFECTIVE RELIEF. ABDOMEN TENDER TO TOUCH. MIDLINE INCISION DRESSING C/D/I. COLOSTOMY INTACT, DRAINING SOFT BROWN STOOL, PASSING FLATUS. NO OUT PUT FROM PERCUTANEOUS DRAIN. ABT'S INFUSING. SAFETY MAINTAINED, CALL SOSA IN EACH.
[2021-08-11 06:12] LABS: Alanine Aminotransfer (ALT/SGP 48 U/L (12-78); Albumin, Blood 2.2 g/dL (3.4-5.0); Albumin/Globulin Ratio 0.5 (0.8-1.8); Alk Phos 185 U/L (50-136); Anion Gap 6 mmol/L (6-16); Aspartate Aminotrans (AST/SGOT 37 U/L (12-37); Bilirubin, Total 0.5 mg/dL (0.1-1.0); Blood Urea Nitrogen 7 mg/dL (8-24); Bun/Creatinine Ratio 12.8 (12.0-20.0); CO2, Blood 27 mmol/L (21-32); Calcium, Blood 8.8 mg/dL (8.5-10.1); Chloride, Blood 101 mmol/L (98-108); Creatinine, Blood 0.55 mg/dL (0.60-1.20); Ferritin, Serum 204 ng/mL (26-388); Globulin, Blood 4.6 g/dL (2.2-4.0); Glomerular Filtration Rate >60 (60-); Glucose, Blood 88 mg/dL (70-99); Iron Serum 24 ug/dL (65-175); Percent Saturation 11.7 % (20.0-50.0); Potassium, Blood 4.1 mmol/L (3.5-5.5); Sodium, Blood 134 mmol/L (136-145); Total Iron Binding Capacity 206 ug/dL (250-450); Total Protein, Blood 6.8 g/dL (6.4-8.2)
--- NOTE | 2021-08-11 19:21 | NUR ---
PATIENT CALLED FREQUENTLY FOR PAIN MEDS, REQUESTING TRAMADOL/PAIN MED. PROVIDED EDUCATION ON ANALGESICS AND BREAKTHROUGH PAIN TO MANAGE CARE AT HOME. PT UNABLE TO TEACHBACK, WILL REINFORCE TEACHING. PT DISCHARGING TOMORROW AM. COLSOTOMY BAG CDI, SOFT BROWN STOOL. DRAIN IN LLQ, SCANT DRAINAGE THIS SHIFT, DRESSING CDI. PATIENT WALKED HALLS SEVERAL TIMES THIS SHIFT.
[2021-08-12 04:38] LABS: BASOPHILS ABSOLUTE AUTO 0.08 K/mm3 (0.00-0.23); BASOPHILS PERCENT AUTO 1 % (0-2); EOSINOPHILS ABSOLUTE AUTO 0.16 K/mm3 (0.00-0.68); EOSINOPHILS PERCENT AUTO 2 % (0-6); Hematocrit 33.4 % (37.0-53.0); Hemoglobin 10.5 g/dL (13.5-17.5); IMMATURE GRAN ABSOLUTE AUTO 0.15 K/mm3 (0.00-0.10); IMMATURE GRAN PERCENT AUTO 1 % (0-1); LYMPHOCYTES ABSOLUTE AUTO 2.95 K/mm3 (0.84-5.20); LYMPHOCYTES PERCENT AUTO 28 % (21-46); MONOCYTES ABSOLUTE AUTO 0.85 K/mm3 (0.16-1.47); MONOCYTES PERCENT AUTO 8 % (4-13); Mean Corpuscular HGB 28.3 pg (26.0-34.0); Mean Corpuscular HGB Conc 31.4 g/dL (31.5-36.5); Mean Corpuscular Volume 90 fL (80-100); Mean Platelet Volume 8.4 fL (9.1-12.4); NEUTROPHILS ABSOLUTE AUTO 6.38 K/mm3 (1.96-9.15); NEUTROPHILS PERCENT AUTO 60 % (41-73); Platelet Count 662 K/mm3 (150-400); RDW Standard Deviation 48.8 fL (35.1-46.3); Red Blood Cell Count 3.71 M/mm3 (4.30-5.90); White Blood Cell Count 10.57 K/mm3 (4.00-11.30)
[2021-08-12 04:58] LABS: Anion Gap 7 mmol/L (6-16); Blood Urea Nitrogen 8 mg/dL (8-24); Bun/Creatinine Ratio 12.9 (12.0-20.0); CO2, Blood 30 mmol/L (21-32); Calcium, Blood 9.2 mg/dL (8.5-10.1); Chloride, Blood 99 mmol/L (98-108); Creatinine, Blood 0.62 mg/dL (0.60-1.20); Glomerular Filtration Rate >60 (60-); Glucose, Blood 98 mg/dL (70-99); Potassium, Blood 4.2 mmol/L (3.5-5.5); Sodium, Blood 136 mmol/L (136-145)
--- NOTE | 2021-08-12 06:42 | NUR ---
SHIFT SUMMARY INCREASED ANXIETY NOTED DUE PT D/C HOME TODAY C/O ABD PAIN EVERY 4 HRS ABD SOFT AND TENDER TO TOUCH PER PATIENT DRESSING TO MIDLINE INTACT AND DRY.COLOSTOMY CARE AND BAG CHANGED SOFT FAOM BROWN OUTPUT.DRAINAGE TUBE TO LEFT ABD DRAINING 75CC PT REQUESTED NOT TO DRAIN IT SO THE DOCTOR CAN SEE IT THIS MORNING BEFORE D/C HOME .
[2021-08-12] MEDS ORDERED: BUSPIRONE HCL7.5 M1 PO (09:00)
[2021-08-12] MEDS ORDERED: FERSU300 PO (09:01)
[2021-08-12] MEDS ORDERED: FOLIC ACID PO (09:01)
[2021-08-12] MEDS ORDERED: IBUP400 PO (09:02)
[2021-08-12] MEDS ORDERED: TRAM50 PO (09:02)
[2021-08-12] MEDS ORDERED: VISBIOME 112.51 EACH PO (09:03)
[2021-08-12] MEDS ORDERED: AMOCLA875 PO (09:03)
--- NOTE | 2021-08-12 09:43 | NUR ---
DISCHARGE PATIENT TRANSPORTED VIA WHEELCHAIR TO AMBULANCE. PATIENT DISCHARGED HOME WITH CAREGIVERS. UPDATED CAREGIVER, SHE WAS MEETING PATIENT AT HIS HOUSE. PATIENT VERY ANXIOUS THIS MORNING. REASSURANCE PROVIDED. OSTOMOY BAG CHANGED BEFORE DISCHARGE. BANDAGE ON MIDLINE STOMACH CHANGED BEFORE DISCHARGE. DRAIN EMPTIED BEFORE DISCHARGE. DRESSINGS C/D/I. POWERGLIDE REMOVED WITHOUT DIFFICULTY. TELE REMOVED WITHOUT DIFFICULTY. MEDICATIONS FAXED TO PERFERRED PHARMACY. DISCHARGE INSTRUCTIONS EXPLAINED TO PATIENT. PATIENT STATED UNDERSTANDING. PACKET SENT WITH PATIENT. BELONGINGS SENT WITH PATIENT. KARLENE TO SCHEDULE FOLLOW UP. PATIENT TO SCHEDULE FOLLOW UP WITH DR. DOUGLAS.
--- NOTE | 2021-08-12 11:05 | NUR ---
Per Dr. Ed Cherry discharge appropriate. Patient does not oppose discharge. Patient is discharged home: [address] [place]. Patient discharged with resumption of home health. [facility] notified of discharge. Will resume services within 48 hours. Patient has a [facility] Precision Lens Grinder Apprentice and she was notified of discharge plan. (Chayito Cruz [phone]). Caregiver scheduled to meet patient at his home at 10:00 am. Caregiver met with Jamarcus in the hospital yesterday and she was educated by bedside nurse on ostomy care. Date of discharge: 08/12/2021 Date of admission: 08/06/2021 Transportation provided by: [facility]/wheelchair transport DME Ordered: patient has 2WW Follow-ups needed: [facility] ADE will contact patient to schedule hospital follow-up visit. Explained importance of follow-up appointment. Provider/PCP: Dr. Keshav Garcia When: within one week Specialty: Follow-up with ostomy/Dr. Yo Morris When: within 7-10 days Confirmed numbers: Patient [phone] Comment: Patient to contact PCP with any questions regarding medication management, social service needs, and if condition worsens go to Urgent Care/ER. No barriers to discharge on this date. Patient's [facility] Precision Lens Grinder Apprentice is Chayito Cruz ([phone]). Patient has received teaching and education on ostomy care. Left message with [facility]. Patient has caregiving services 6 days a week starting today. APD label paster will meet with patient today.
== END 2021-08-12 09:10 | disposition home health service (06) | DRG 871 ==
LOC: ER 23:32 → MEDS 23:33 → ENPENDDIS 08-12 09:00 → MEDS 08-12 09:10
PROVIDERS: Emergency Medicine; Family Medicine; Hospitalist; Surgery; ADMIT Family Medicine
PROC: 0W9G30Z Drainage of Peritoneal Cavity with Drainage Device, Percutaneous Approach (ICD-10-PCS; principal; 2021-08-08)
PROC: 3E03329 Introduction of Other Anti-infective into Peripheral Vein, Percutaneous Approach (ICD-10-PCS; 2021-08-08)
DX: A41.9 Sepsis, unspecified organism (principal); J18.9 Pneumonia, unspecified organism; K65.1 Peritoneal abscess; E87.6 Hypokalemia; F41.9 Anxiety disorder, unspecified; J45.909 Unspecified asthma, uncomplicated; Z90.49 Acquired absence of other specified parts of digestive tract; F12.90 Cannabis use, unspecified, uncomplicated; Z20.822 Contact with and (suspected) exposure to COVID-19; Z88.8 Allergy status to other drugs, medicaments and biological substances; F31.9 Bipolar disorder, unspecified; G47.00 Insomnia, unspecified; F20.9 Schizophrenia, unspecified; Z87.891 Personal history of nicotine dependence; Z79.899 Other long term (current) drug therapy
CPT/HCPCS: 0241U; 36415; 49405; 71045; 74177; 80048; 80053; 81003; 82607; 82728; 82746; 83540; 83550; 83605; 83735; 83880; 84100; 84145; 85025; 85610; 87040; 87070; 87075; 87076; 87077; 87185; 87186; 87205; 94640; 94664; 94760; 96365; 96372; 96376; 97110; 97112; 97116; 97161; 97165; 97530; 97535; 99285-25; A9270; G0378; J0295; J1650; J2405; J2543; J7030; J7050; Q9967

== ENCOUNTER 2021-10-26 18:59 | Emergency (ER) | payer OTHER ==
[~2021-10-26] VITALS: Ht 188 cm; Wt 93.0 kg
[~2021-10-26 18:59] MED LIST changes: +AMOCLA875 PO; +BUSPIRONE HCL7.5 M1 PO; +FERSU300 PO; +FOLIC ACID PO; +IBUP400 PO; +VISBIOME 112.51 EACH PO
[2021-10-26 20:39] LABS: BASOPHILS ABSOLUTE AUTO 0.09 K/mm3 (0.00-0.23); BASOPHILS PERCENT AUTO 1 % (0-2); EOSINOPHILS ABSOLUTE AUTO 0.23 K/mm3 (0.00-0.68); EOSINOPHILS PERCENT AUTO 2 % (0-6); Hematocrit 49.2 % (37.0-53.0); Hemoglobin 16.3 g/dL (13.5-17.5); IMMATURE GRAN ABSOLUTE AUTO 0.03 K/mm3 (0.00-0.10); IMMATURE GRAN PERCENT AUTO 0 % (0-1); LYMPHOCYTES ABSOLUTE AUTO 4.16 K/mm3 (0.84-5.20); LYMPHOCYTES PERCENT AUTO 32 % (21-46); MONOCYTES ABSOLUTE AUTO 0.85 K/mm3 (0.16-1.47); MONOCYTES PERCENT AUTO 7 % (4-13); Mean Corpuscular HGB 28.8 pg (26.0-34.0); Mean Corpuscular HGB Conc 33.1 g/dL (31.5-36.5); Mean Corpuscular Volume 87 fL (80-100); Mean Platelet Volume 9.2 fL (9.1-12.4); NEUTROPHILS ABSOLUTE AUTO 7.78 K/mm3 (1.96-9.15); NEUTROPHILS PERCENT AUTO 59 % (41-73); Platelet Count 281 K/mm3 (150-400); RDW Coefficient Variation 12.8 % (11.7-14.2); RDW Standard Deviation 40.1 fL (35.1-46.3); Red Blood Cell Count 5.66 M/mm3 (4.30-5.90); White Blood Cell Count 13.14 K/mm3 (4.00-11.30)
[2021-10-26 21:00] LABS: Albumin/Globulin Ratio 1.1 (0.8-1.8); Bilirubin, Total 0.2 mg/dL (0.1-1.0); Bun/Creatinine Ratio 24.4 (12.0-20.0); Calcium, Blood 9.3 mg/dL (8.5-10.1); Creatinine, Blood 0.74 mg/dL (0.60-1.20); Globulin, Blood 3.6 g/dL (2.2-4.0); Potassium, Blood 3.8 mmol/L (3.5-5.5); Total Protein, Blood 7.6 g/dL (6.4-8.2)
== END 2021-10-26 22:38 | disposition home or self-care (01) ==
LOC: ER 18:59
PROVIDERS: Physician Assistant
DX: R10.30 Lower abdominal pain, unspecified (principal); J45.909 Unspecified asthma, uncomplicated; Z79.899 Other long term (current) drug therapy; Z87.891 Personal history of nicotine dependence
CPT/HCPCS: 36415; 80053; 83605; 85025

== ENCOUNTER 2022-04-03 10:33 | Day surgery (SDC) | payer OTHER ==
[~2022-04-03] VITALS: Ht 188 cm; Wt 105.4 kg
== END 2022-04-03 12:40 | disposition home or self-care (01) ==
LOC: ORSCSDS 10:33 → ORD 04-14 11:45
PROVIDERS: Surgery
PROC: 0DJD8ZZ Inspection of Lower Intestinal Tract, Via Natural or Artificial Opening Endoscopic (ICD-10-PCS; principal; 2022-04-03 11:45)
PROC: 0DBM8ZX Excision of Descending Colon, Via Natural or Artificial Opening Endoscopic, Diagnostic (ICD-10-PCS; principal; 2022-04-03 11:45)
DX: Z93.3 Colostomy status (principal); D12.4 Benign neoplasm of descending colon; K62.89 Other specified diseases of anus and rectum; J45.909 Unspecified asthma, uncomplicated; F41.1 Generalized anxiety disorder; Z87.891 Personal history of nicotine dependence; Z79.899 Other long term (current) drug therapy
CPT/HCPCS: 88305; J0330; J0461; J2405; J2704; J7120

== ENCOUNTER 2022-04-16 05:45 | Inpatient (IN) | payer OTHER ==
[~2022-04-16] VITALS: Ht 188 cm; Wt 104.2 kg
--- NOTE | 2022-04-16 09:00 | NUR ---
04/16/22 0900 Efren Lassiter STOMA DRESSING REMOVED BY BALJEET AND SKIN PREPPED WITH ALCOHOL AND SUREPREP. TEGADERM PLACED AND PREPPED OVER WITH CHLORAPREP PER .
--- NOTE | 2022-04-16 18:25 | NUR ---
SHIFT SUMMARY PATIENT NEW ADMIT TO UNIT POD [address] DOUGLAS. DROWSY ON ARRIVAL TO ROOM, PAINFUL IN LOWER ABD AND ANXIOUS. DILAUDID STOCK PATCH SAWYER SET UP. MIDLINE ABD INCISIONS WITH MICHAEL X2 WITH PATENT SEAL AND VACUUM. MODE SATURATION TO LOWER AND OF DRESSING. CROCKER PATENT AND DRAINING CLEAR YELLOW URINE. IV FLUID RUNNING AND ROUTINE ABX. PATIENT HAS HX TBI WITH COGNITIVE DISABILITY. NEEDS MUCH REASSURANCE AND ANSWERS TO NUMEROUS QUESTIONS. OTHERWISE COOPERATIVE. ABD TENDER, MODERATELY DISTENDED. MEDICATED FOR NAUSEA PER EMAR. TOLERATING SIPS OF WATER AT THIS TIME. REPORTS BURPING BUT NO GAS.
[2022-04-17 04:53] LABS: BASOPHILS ABSOLUTE AUTO 0.02 K/mm3 (0.00-0.23); BASOPHILS PERCENT AUTO 0 % (0-2); EOSINOPHILS PERCENT AUTO 0 % (0-6); Hematocrit 39.6 % (37.0-53.0); Hemoglobin 14.2 g/dL (13.5-17.5); IMMATURE GRAN ABSOLUTE AUTO 0.04 K/mm3 (0.00-0.10); IMMATURE GRAN PERCENT AUTO 0 % (0-1); LYMPHOCYTES ABSOLUTE AUTO 2.31 K/mm3 (0.84-5.20); LYMPHOCYTES PERCENT AUTO 19 % (21-46); MONOCYTES ABSOLUTE AUTO 1.32 K/mm3 (0.16-1.47); MONOCYTES PERCENT AUTO 11 % (4-13); Mean Corpuscular HGB 31.3 pg (26.0-34.0); Mean Corpuscular HGB Conc 35.9 g/dL (31.5-36.5); Mean Corpuscular Volume 87 fL (80-100); Mean Platelet Volume 9.6 fL (9.1-12.4); NEUTROPHILS ABSOLUTE AUTO 8.51 K/mm3 (1.96-9.15); NEUTROPHILS PERCENT AUTO 70 % (41-73); Platelet Count 241 K/mm3 (150-400); RDW Coefficient Variation 11.7 % (11.7-14.2); RDW Standard Deviation 37.4 fL (35.1-46.3); Red Blood Cell Count 4.53 M/mm3 (4.30-5.90)
[2022-04-17 05:13] LABS: Bun/Creatinine Ratio 16.1 (12.0-20.0); Calcium, Blood 8.5 mg/dL (8.5-10.1); Creatinine, Blood 0.81 mg/dL (0.60-1.20); Magnesium, Blood 1.8 mg/dL (1.6-2.4); Phosphorus, Blood 1.8 mg/dL (2.5-4.9); Potassium, Blood 3.8 mmol/L (3.5-5.5)
--- NOTE | 2022-04-17 05:37 | NUR ---
SUMMARY PT PAIN MANAGED WELL WITH SOFTWARE TOOLS ENGINEER. PT REPORTED FREQUENT EPISODES OF NAUSEA. PT TX PER EMAR WITH RELIEF. PT REPORTED HAVING A EPISODE OF HIGH ANXIETY. PT STATED HE WOULD LIKE TO RESTART HIS SLEEP AID MED. PT HAS BEEN ABLE TO SLEEP SOME. MICHAEL DRESSINGS INTACT WITH SOME HEAVY SHADOWING NOTED. CROCKER DRAINING TO GRAVITY.
--- NOTE | 2022-04-17 19:27 | NUR ---
SHIFT SUMMARY POD1 OSTOMY TAKEDOWN, PT AMBULATED 3 TIMES IN HALLS TODAY GOING MORE THAN 200 FEET EACH TIME, DENIES HAVING ANY FLATUS YET BUT IS TOLERATING SIPPING ON WATER, REPORTS MILD INTERMITTENT NAUSEA THAT IS MANAGABLE NEEDING ZOFRAN ONCE THIS SHIFT, INSPECTOR PLATING IN PLACE AND IS MANAGING HIS PAIN, PT REPORTED NEW BRUISE LOCATED ON THE SUPERIOR ASPECT OF HIS PENIS PROXIMALLY TO THE BODY, HE REPORTS THAT IT IS NOT PAINFUL BUT WAS CONCERNED THAT HE MIGHT "LOSE HIS PENIS". PT WAS EDUCATED THAT THIS IS NOT CONCERNING GIVEN HIS RECENT SURGERY, CHIO RN MADE AWARE, PT REPORTS HE WANTS SURGEON TO KNOW WELL. NO ACUTE EVENTS THIS SHIFT, CALL LIGHT IN REACH, REPORT GIVEN TO CHIO RN.
--- NOTE | 2022-04-17 19:49 | NUR ---
FOUNTAIN JERK FOUNTAIN JERK PUMP SHUT OFF PART WAY THROUGH THE SHIFT AND WAS UNABLE TO REBOOT IT. PT PROVIDED WITH NEW FOUNTAIN JERK PUMP AND VIAL CHANGED OVER TO NEW PUMP BUT THE AMOUNT OF MEDICATION FROM START OF SHIFT UP TO THAT POINT WAS NOT ABLE TO BE RETRIVED FROM THE ORIGINAL PUMP. PT AWAKE AND ALERT DURING THIS TIME. FOUNTAIN JERK CLEARED AGAIN AT END OF SHIFT WITH NEW VIAL REPLACED AT THAT TIME.
[2022-04-18 05:04] LABS: BASOPHILS ABSOLUTE AUTO 0.05 K/mm3 (0.00-0.23); BASOPHILS PERCENT AUTO 1 % (0-2); EOSINOPHILS ABSOLUTE AUTO 0.07 K/mm3 (0.00-0.68); EOSINOPHILS PERCENT AUTO 1 % (0-6); Hematocrit 36.8 % (37.0-53.0); Hemoglobin 12.8 g/dL (13.5-17.5); IMMATURE GRAN ABSOLUTE AUTO 0.02 K/mm3 (0.00-0.10); IMMATURE GRAN PERCENT AUTO 0 % (0-1); LYMPHOCYTES ABSOLUTE AUTO 3.52 K/mm3 (0.84-5.20); LYMPHOCYTES PERCENT AUTO 40 % (21-46); MONOCYTES ABSOLUTE AUTO 0.96 K/mm3 (0.16-1.47); MONOCYTES PERCENT AUTO 11 % (4-13); Mean Corpuscular HGB 31.1 pg (26.0-34.0); Mean Corpuscular HGB Conc 34.8 g/dL (31.5-36.5); Mean Corpuscular Volume 89 fL (80-100); Mean Platelet Volume 9.6 fL (9.1-12.4); NEUTROPHILS PERCENT AUTO 47 % (41-73); Platelet Count 204 K/mm3 (150-400); RDW Coefficient Variation 11.9 % (11.7-14.2); RDW Standard Deviation 39.1 fL (35.1-46.3); Red Blood Cell Count 4.12 M/mm3 (4.30-5.90); White Blood Cell Count 8.72 K/mm3 (4.00-11.30)
[2022-04-18 05:24] LABS: Bun/Creatinine Ratio 8.7 (12.0-20.0); Calcium, Blood 8.4 mg/dL (8.5-10.1); Creatinine, Blood 0.69 mg/dL (0.60-1.20); Magnesium, Blood 2.1 mg/dL (1.6-2.4); Phosphorus, Blood 2.2 mg/dL (2.5-4.9); Potassium, Blood 3.7 mmol/L (3.5-5.5)
--- NOTE | 2022-04-18 06:01 | NUR ---
SHIFT SUMMARY NO ACUTE CHANGES NOTED THROUGH THE NIGHT, PT IS AMBULATING IN THE HALLS THIS MORNING WITH THE SERVICE OFFICER, PT HAS NOT PASSED FLATUS, BS ACTIVE X4, TOLERATING SIPS OF WATER, VOIDING WNL, VSS, RESP UNLABORED, REGENERATION OPERATOR FOR PAIN CONTROL, PO BENEDRYL GIVEN X2 FOR ITCHING,FLUID FILLED BLISTER FOUND ON THE LEFT BORDER OF ABD DRSG, INTACT. PT CALLS FOR ASSISTANCE PRN, CALL LIGHT IN REACH, WCTM & REPORT TO DAY RN.
--- NOTE | 2022-04-18 20:02 | NUR ---
SHIFT SUMMARY POD2 OSTOMY TAKEDOWN, A/OX4, VSS, TOLERATING ICE CHIPS, PT AMBULATING INDEPENDENTLY IN THE HALLS, PASSING SOME FLATUS, NO BM BUT DOES HAVE SMALL AMT OF BLOOD ON HIS RECTUM AFTER PASSING FLATUS WHILE ON THE TOILET. BRUISE ON HIS PENIS IS A LITTLE BIGGER AND DARKER, COLOR EXTENDS TO SIDE OF HIS SCROTUM, PT NEEDS A LOT OF REASSURANCE THAT HE WILL NOT LOSE HIS PENIS. BLISTER ON L SIDE OF MICHAEL OPENED, XEROFORM PLACED OVER IT COVERED BY A NON ADHERANT DRESSING FOR PT COMFORT. PEST CONTROL PILOT IN PLACE AND BEING USED APPROPRIATELY. NO ACUTE EVENTS THIS SHIFT, CALL LIGHT IN REACH, REPORT GIVEN TO CHIO ORTIZ.
--- NOTE | 2022-04-19 05:09 | NUR ---
SHIFT SUMMARY PT A&OX4, PLEASANT AND COOPERATIVE. NO ACUTE CHANGES, VSS. AMBULATED INDEPENDENTLY IN ROOM. PT STATES HE CONTINUES TO PASS FLATUS, HAD ONE BM GREEN/MUCOUSY. BLISTER ON LLQ COVERED WITH NON ADHERENT DRESSING. REMAINS ON DILAUDID PRICER BAGGER FOR PAIN COVERAGE. CALLS APPROPRIATELY, CALL LIGHT WITHIN REACH.
--- NOTE | 2022-04-19 06:41 | NUR ---
NET DEVELOPER PROGRAMMER CLEAR 7.5MG
--- NOTE | 2022-04-19 13:00 | NUR ---
PT REPORTS NAUSEA IS "BETTER" AFTER ZOFRAN GIVEN, ENCOURAGED TO AMBULATE.
--- NOTE | 2022-04-19 13:24 | NUR ---
PT HAD A LATE REGULAR BREAKFAST, ATE 100%, AMBULATED DOWN THE HALLS AFTER, C/O NAUSEA WHEN RETURNED TO ROOM, ZOFRAN GIVEN, PT REFUSED LUNCH, NOW RESTING IN BED, CONT. TO MONITOR FOR ANY CHANGES.
--- NOTE | 2022-04-19 19:40 | NUR ---
SUMMARY PT STARTED ON REG DIET TODAY, TOLERATED FAIRLY WELL, HAD SOME NAUSEA AFTER LATE BREAKFAST, STATES "BETTER" AFTER ZOFRAN GIVEN, HAD A BM TODAY, REPORTS PASSING FLATUS, AMBULATED X3 TODAY, REPORTS PAIN IS TOLERABLE WITH PERCOCET, C/O SOME ITCHING ON SIDES OF ABD DSG, PT GIVEN BENADRYL WITH REPORTED GOOD RELIEF, NO OTHER CHANGES THIS SHIFT.
--- NOTE | 2022-04-20 15:10 | NUR ---
ABD MICHAEL DSG REMOVED BY DR. GANN EARLIER THIS AFTERNOON, PT TOOK A SHOWER, MEDIPORE DRESSING APPLIED.
--- NOTE | 2022-04-20 17:50 | NUR ---
SUMMARY PT REPORTS DECREASED NAUSEA TODAY, AMBULATED DOWN THE HALLS X4, REPORTS HAVING A BM TODAY, PAIN TOLERABLE WITH PERCOCET, MICHAEL DSG REMOVED BY DR. GANN, MEDIPRE DSG APPLIED, PT TOOK A SHOWER TODAY, NO ACUTE CHANGES THIS SHIFT.
[2022-04-21] MEDS ORDERED: Percocet 5-3251 EACH PO (09:47)
--- NOTE | 2022-04-21 13:52 | NUR ---
DISCHARGE SUMMARY POD5 COLOSTOMY TAKEDOWN, A/O X4, VSS, TOLERATING PO, AMBULATING INDEPENDENTLY, PAIN WELL MANAGED. DISCUSSED DISCHARGE INSTRUCTIONS WITH THE PATIENT INCLUDING HOME CARE, MEDICATIONS WITH PROVIDED PRINTED EDUCATION, AND FOLLOW UP APPOINTMENTS IN WHICH PT REPORTED HE WAS ALREADY GIVEN A DATE AND TIME. PT HAD QUESTIONS REGARDING SIDE EFFECTS OF CONSTIPATION IN WHICH PRINTED CONSTIPATION PREVENTION EDUCATION WAS PROVIDED WELL. PT HAD NO OTHER QUESTIONS, RIDE ARRANGED FOR 1300 TODAY AT [facility]. PT ESCORTED TO [facility] BY NURSING STAFF.
== END 2022-04-21 13:00 | disposition home or self-care (01) | DRG 331 ==
LOC: SURS 05:45 → PRE IP 07:30 → SURS 12:40
PROVIDERS: ADMIT Surgery
PROC: 0DBE0ZZ Excision of Large Intestine, Open Approach (ICD-10-PCS; principal; 2022-04-16 07:30)
DX: Z43.3 Encounter for attention to colostomy (principal); Z88.8 Allergy status to other drugs, medicaments and biological substances; J45.909 Unspecified asthma, uncomplicated; F41.1 Generalized anxiety disorder; Z79.899 Other long term (current) drug therapy; G47.00 Insomnia, unspecified; F43.21 Adjustment disorder with depressed mood; Z87.891 Personal history of nicotine dependence
CPT/HCPCS: 36415; 80048; 83735; 84100; 85025; 94640; 94664; 94760; 94762; A9270; J0690; J1100; J1170; J1644; J1650; J2250; J2405; J2704; J2795; J3010; J7060; J7120